=== PATIENT | female | born 1955 | race Caucasian/White ===

== ENCOUNTER → 2018-03-02 07:39 | Outpatient (CLI) | payer OTHER, SELFPAY ==
--- NOTE | 2018-03-02 07:57 | CI_ITS ---
Cerebrovascular Exam Indications: 785.9 Bruit. IMPRESSIONS 1. The bilateral vertebral arteries are patent with normal antegrade flow. 2. Study suggests less than 20% stenosis involving the right internal carotid artery and the left internal carotid artery. History: Risk factors: Hypertension. Hyperlipidemia. Carotid duplex study. Complete study and Doppler flow study including spectral analysis, color and chris scale imaging. Height: Height: 160cm. Height: 63in. Weight: Weight: 63.5kg. Weight: 139.7lb. Body mass index: BMI: 24.8kg/m^2. Body surface area: BSA: 1.69m^2. Location: Vascular laboratory. Patient status: Outpatient. Tables: Arterial flow: + +--------+--------+ Location V sys V ed + +--------+--------+ Right CCA - proximal 104cm/s 33.8cm/s + +--------+--------+ Right CCA - distal 126cm/s 41.6cm/s + +--------+--------+ Right ECA 193cm/s -------- + +--------+--------+ Right ICA - proximal 120cm/s 35.8cm/s + +--------+--------+ Right ICA - mid 128cm/s 36.7cm/s + +--------+--------+ Right ICA - distal 106cm/s 41cm/s + +--------+--------+ Right vertebral 69.8cm/s -------- + +--------+--------+ Left CCA - proximal 93.4cm/s 24.4cm/s + +--------+--------+ Left CCA - distal 126cm/s 41.9cm/s + +--------+--------+ Left ECA 157cm/s -------- + +--------+--------+ Left ICA - proximal 114cm/s 34.1cm/s + +--------+--------+ Left ICA - mid 135cm/s 38.4cm/s + +--------+--------+ Left ICA - distal 113cm/s 43.1cm/s + +--------+--------+ Left vertebral 62.9cm/s -------- + +--------+--------+ Velocity ratios: + + + + + + Right, V sys Right, V ed Left, V sys Left, V ed + + + + + + Max ICA/dist CCA 1.02 0.99 1.07 1.03 + + + + + + (Report amended ) Electronically signed by: Duane Paredes [id number]
--- NOTE | 2018-03-02 09:10 | MM_ITS ---
MM Dig screening mamm BI w/CAD CAD Screening ORDERING PHYSICIAN : Homero Sloan MD PATIENT AGE: 63 years GENDER: Female COMPARISON: Previous not available for comparison. Mammograms from [place] February INDICATION: Routine screening. No hormones. No new complaints. Family history. 2 sisters with breast cancer TECHNIQUE: Standard CC and MLO images were obtained. R2 CAD reviewed. FINDINGS: Lower density breast with some minimal asymmetric fibroglandular elements more evident on right than left. However this appears to be stable long-standing feature with no significant new findings. No dominant mass nor suspicious calcifications. Bilateral follow-up one year adequate. IMPRESSION: Stable bilateral mammogram with no significant new findings. Stable mild asymmetry. Follow up one year recommended BI-RADS Category: 1 Negative RECOMMENDED FOLLOW-UP: 1YR - 1 YEAR FOLLOW-UP (A letter has been sent to the patient regarding results of the study.)
--- NOTE | 2018-03-02 09:10 | XR_ITS ---
XR DEXA axial skeleton HISTORY: ITS.REASON: OSTEOPENIA' ORDERING PHYSICIAN: Homero Sloan MD PATIENT AGE: 63 years COMPARISON: FINDINGS: The BMD measured at the AP Spine L1-L4 is 0.920 g/cm squared with a T score of -2.2. This is considered Osteopenic according to the World Health Organization criteria. Fracture risk is Moderate. Treatment is advised. The mean density of the hips is a T score of -1.2 IMPRESSION: Osteoporosis with high fracture risk. Recommend follow-up exam in February 2019. Treatment is recommended.
== END ==
PROVIDERS: Family Provider Family Medicine; PCP Family Medicine; Visit Provider Family Medicine
DX: R09.89 Other specified symptoms and signs involving the circulatory and respiratory systems (principal); Z12.31 Encounter for screening mammogram for malignant neoplasm of breast; M85.89 Other specified disorders of bone density and structure, multiple sites; Z13.820 Encounter for screening for osteoporosis
CPT/HCPCS: 77067; 77080; 93880

== ENCOUNTER → 2018-08-14 11:23 | Outpatient (CLI) | payer OTHER, SELFPAY ==
--- NOTE | 2018-08-14 11:27 | XR_ITS ---
XR chest 2V HISTORY: Right-sided chest pain ITS.REASON: CONTUSION OF RT RIB ORDERING PHYSICIAN: Homero Sloan MD PATIENT AGE: 63 years COMPARISON: None FINDINGS: Borderline cardiomegaly without failure. No lobar consolidation or collapse. No acute bony anomalies. IMPRESSION: No acute finding
--- NOTE | 2018-08-14 11:27 | XR_ITS ---
XR ribs RT 2V HISTORY: Right-sided rib pain following injury ITS.REASON: CONTUSION OF RT RIB ORDERING PHYSICIAN: Homero Sloan MD PATIENT AGE: 63 years Comparison: None FINDINGS: Multiple views of the right ribs were obtained. No fracture or dislocation. No lytic or blastic change. IMPRESSION: Negative RIBS. If pain persists, consider follow-up exam in 7-[address] with 3-D reformats.
== END ==
PROVIDERS: PCP Family Medicine; Visit Provider Family Medicine
DX: S20.211A Contusion of right front wall of thorax, initial encounter (principal)
CPT/HCPCS: 71046; 71100

== ENCOUNTER → 2020-03-28 13:28 | Outpatient (CLI) | payer BC, SELFPAY ==
[2020-03-28 14:24] LABS: Coronavirus 19 IgG Antibody Negative (Negative)
[2020-03-28 14:25] LABS: Coronavirus 19 IgM Antibody Negative (Negative)
== END ==
PROVIDERS: Visit Provider Surgery
DX: Z01.818 Encounter for other preprocedural examination (principal)
CPT/HCPCS: 86328

== ENCOUNTER 2020-03-29 09:40 | Day surgery (SDC) | payer BC, SELFPAY ==
--- NOTE | 2020-03-28 10:46 | SUR.PREOP ---
03/28/2020 @ 1045--PHONE CALL MADE TO PATIENT. PATIENT UNDERSTANDS THAT LAB WORK AND COVID TESTING NEEDS TO BE COMPLETED TODAY BY 3 PM. PATIENT UNDERSTANDS IF LAB WORK AND COVID-19 TESTS ARE NOT COMPLETED BY 12PM ON THAT DATE, THE SURGERY SCHEDULED WILL BE CANCELLED AND RESCHEDULED FOR ANOTHER TIME.
[2020-03-28 11:41] VITALS: BMI 24.0
[2020-03-29] VITALS (13 sets, daily range): BP systolic 120–150; BP diastolic 58–86; PULSE 58–73; RESP 14–20; TEMP 36.4–43; O2SAT 96–100
--- NOTE | 2020-03-29 10:25 | P.PN_ITS ---
[facility] Anesthesia Checklist - Patient Identification Patient Identification: Arm Band, Verbal (Name & ) - Structural Data Admitted From: Home Planned Operative Procedure/s: EUA Consent for Planned Operative Procedure(s) Verified: Yes Verified Documents: Surgical Consent, History and Physical - NPO Status Verified Time NPO: 20:30 - Chart Verification Results Verified: None (Covid-19 negative) - Additional verifications Anesthesia Reactions: No Hx Blood Transfusions: No Blood Transfusion Reaction: No - Airway Assessment C-Spine Mobility Assessed: Yes TMJ Mobility Assessed: Yes Dentition: Good Dentition - Neurological Assessment Level of Consciousness: Awake, Alert, Appropriate, Follows Commands Hx Seizures: Yes (last was 20 years ago) Numbness or tingling in extremities: No - Anesthesia Plan Anesthesia Risk discussed: Yes Anesthesia Plan: Verified ASA Class: II Anesthesia Type: MAC [facility] History I have reviewed the patient's past medical history: Yes Medical History: Reports:: Hyperlipidemia, Hypertension, Seizures Denies:: Cancer, Diabetes Mellitus Type 1, Diabetes Mellitus Type 2, Internal Pacemaker, MRSA *Have you ever received a pneumonia vaccine?: Yes *Have you received a flu vaccine this season?: No Other Medical History: Reports: Hypothyroidism. Denies: Blood Transfusion Reaction Anesthesia experience/problems:: Anesthesia awareness during hysterectomy Laterality Cases: Bilateral: Arthroscopy Shoulder Other Surgeries: Yes: Colonoscopy. No: Pacemaker Amputation: No Fractures: No Comment: SXHX: Divina - *Social History Educational Level: Attended High School Smoking Status: Never smoker Alcohol Intake: never Substance Use Type: denies use *Occupational Status:: other Housing: house Household Members: spouse *Travel in the last 8 weeks: None Family Hx:: No significant family history
--- NOTE | 2020-03-29 11:35 | HMH.OPNOTE ---
Date of procedure: 03/29/20 Pre-op Diagnosis:: Anorectal pain Post-op Diagnosis:: Same Procedure performed:: AnoRectal exam under anesthesia Surgeon:: Roel Todd MD SENIOR CORPORATE STRATEGY MANAGER:: Juvencio Carr Anesthesia: LMA Estimated blood loss (mL): 2 Clinical Note:: She was referred by Jael Burns and seen in the office several weeks ago. At that time she had several weeks of severe anal pain described as often sharp like. Denies rectal bleeding. She was sent for evaluation of hemorrhoids. The time I saw her examination was very limited due to her exquisite pain but her symptoms seem to be more consistent with possible anal fissure. I changed her medication treatment to be better suited for fissure with nitroglycerin ointment and Xylocaine ointment. Patient presented back to the office a couple of days ago still has significant pain and states that after bowel movement it feels extremely sharp and tearing. Examination was inconclusive as it was very limited due to her severe pain. Options were discussed including possible colorectal surgery referral for presumed fissure. Patient was reluctant as this would require travel. Plan was made to proceed with exam under anesthesia to better evaluate the underlying etiology of her symptoms. Operative findings:: She had an anterior midline anal fissure Operative note:: Patient was taken to the operating room. She was positioned in a supine position. General anesthesia was induced via LMA. Perineum was prepped and draped in the standard surgical fashion. Digital examination was performed which was relatively unremarkable. [place] anoscope was inserted. 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 She did not appear to have definite hypertrophic anal stenosis. Local anesthetic consisting of half percent bupivacaine with epinephrine was injected at the region of the fissure and anal Derm. There is minor using and Gelfoam rolled and topical anesthetic was inserted into the anorectal vault. Absorbent pad was applied. Patient may receive relief from minor dilatation from the exam and injection of local anesthetic. I will have her continue with the topical lidocaine. If her symptoms persist she may be a candidate for diltiazem ointment for continued attempt at nonoperative management. However, I did inform her that she may require colorectal surgical referral for definitive management due to the unusual nature and location of this fissure. Condition: stable Disposition: PACU Complications:: None
--- NOTE | 2020-03-29 11:41 | P.PN_ITS ---
[facility] Anesthesia Record Part I Intake, IV Amount: 850 Estimated blood loss (mL): 0 Urine output (mL): 0 Blood Products used (#): none Blood Pressure: 128/58 SaO2: 96 Pulse Rate: 73 Respiratory Rate: 20 Temperature: 97.6 F Patient is:: Drowsy, Stable Stable to PACU at:: 11:39
--- NOTE | 2020-03-29 12:45 | HMH.ANESII ---
[facility] Anesthesia Record Part II Discharge Time: 12:09 Destination: Surgical Day Care (OP Surgery) PACU nurse assessment reviewed?: Yes Patient Condition:: Good Anesthesia Complications:: None Swallowing reflex intact?: Yes Cyanosis?: No Blood Pressure: 134/66 Pulse Rate: 61 Temperature: 98.7 F Mental Status: Alert & Oriented Pain level:: 2 Nausea and/or vomitting:: None Intake, IV Amount: 20
== END 2020-03-29 13:05 | disposition home or self-care (01) ==
PROVIDERS: PCP Family Medicine; Visit Provider Surgery
PROC: (CPT 45378; principal; 2020-03-29 11:30)
DX: K62.89 Other specified diseases of anus and rectum (principal); K60.2 Anal fissure, unspecified; Z88.8 Allergy status to other drugs, medicaments and biological substances; Z79.899 Other long term (current) drug therapy; E03.9 Hypothyroidism, unspecified; I10 Essential (primary) hypertension
CPT/HCPCS: 45378; J2405

== ENCOUNTER → 2020-09-12 08:39 | Outpatient (CLI) | payer BC, MEDICARE, SELFPAY ==
--- NOTE | 2020-09-12 08:53 | MR_ITS ---
PROCEDURE: MR HEAD/BRAIN WO CON CLINICAL INDICATION: seizure, headaches COMPARISON: No exams were available for comparison TECHNIQUE: Routine multiplanar multi echo sequences are performed without gadolinium enhancement. FINDINGS: No midline shift, mass effect, intracranial hemorrhage, or hydrocephalus is evident. The cerebellopontine angles, cerebellum, and brainstem have an unremarkable appearance. No evidence of acute infarction. There are few T2 white matter hyperintensities which are nonspecific. These may be due to ischemic gliotic change from microvascular disease. The hippocampal gyri are unremarkable in the temporal horns are symmetric. The pituitary, optic chiasm, corpus callosum, and craniocervical junction have an unremarkable appearance. The upper cervical cord has an unremarkable appearance. No mastoid effusion or sinus air-fluid level. IMPRESSION: 1. No acute intracranial findings. 2. There are few scattered T2 white matter hyperintensities nonspecific and may be due to ischemic gliotic change from microvascular disease. Dictated by: Duane Paredes MD 09/13/2020 11:45 Duane Paredes MD in [place] 09/13/2020 11:45
[2020-09-12 09:03] LABS: Blood Urea Nitrogen 12 mg/dl (7-17); Estimated Glomerular Filt Rate 72 ml/min (>60); GFR (African American) 87 ML/MIN (>60)
[2020-09-12 10:17] LABS: Ferritin 34.7 ng/ml (11.1-264)
[2020-09-12 10:57] LABS: Folate 5.73 ng/mL; Vitamin B12 882 pg/mL (239-931)
[2020-09-12 12:37] LABS: Erythrocyte Sedimentation Rate 18 mm/hr (0-30)
[2020-09-24 16:48] LABS: Antinuclear Antibodies (ANA) Positive
[2020-09-24 16:50] LABS: Anti-DNA (DS) Ab Charge YES; Anti-DNA (DS) Ab Qn 14; RNP Antibodies <.2; RNP Antibodies Charge YES; Smith Antibodies Charge YES
[2020-09-24 16:51] LABS: Anti-Centromere B Abs Charge YES; Anti-Centromere B Antibodies <.2; Anti-Jo-1 <.2; Anti-Jo-1 Charge YES; Antichromatin Abs Charge YES; Antichromatin Antibodies <.2; Antiscleroderma-70 Abs Charge YES; Antiscleroderma-70 Antibodies <.2; Sjogren's Anti-SS-A <.2; Sjogren's Anti-SS-A Ab Charge YES; Sjogren's Anti-SS-B <.2; Sjogren's Anti-SS-B Ab Charge YES
== END ==
PROVIDERS: Nurse Practitioner Family; PCP Family Medicine; Visit Provider Specialist
DX: G43.719 Chronic migraine without aura, intractable, without status migrainosus (principal); R20.0 Anesthesia of skin; E53.8 Deficiency of other specified B group vitamins; E83.10 Disorder of iron metabolism, unspecified; Z87.19 Personal history of other diseases of the digestive system; Z87.898 Personal history of other specified conditions
CPT/HCPCS: 36415; 70551; 82565; 82607; 82728; 82746; 84520; 85651; 86038; 86225; 86235

== ENCOUNTER 2020-10-13 11:01 | Emergency (ER) | payer BC, SELFPAY ==
[2020-10-13 11:11] VITALS: BP 118/71; PULSE 76; RESP 17; TEMP 36.6; O2SAT 98; BMI 24.0
--- NOTE | 2020-10-13 11:19 | HMH.EDUTC ---
[facility] [place] Clinical Impression: Viral syndrome, Exposure to COVID-19 virus Disposition: Home, Self-Care Condition on Discharge: Good Instructions: Preventing the Spread of Coronavirus Discharge Instructions Additional Instructions: Drink plenty of fluids. Take tylenol for pain or fever. Return if you begin to have difficulty breathing. Follow up with your regular doctor. GO TO THE ER FOR ANY WORSENING SYMPTOMS Prescriptions: Ondansetron [Zofran 4mg ODT] 4 mg PO Q8HP PRN #20 tab.rapdis PRN Reason: Nausea Transmission Status: Received by [id number] Azithromycin [Z-Raymundo 250mg Tab*] 250 mg PO UD DOSE PK #6 tab Transmission Status: Received by [id number] Referrals: Homero Sloan MD [Primary Care Provider] - Time of Disposition: 11:21 Medical Decision Making - Medical Records Medical records reviewed: No: I reviewed the patient's medical records. - Rah Inquiry Pt receiving controlled substance: No Vital Signs: 10/13/20 11:11 10/13/20 11:39 Temperature 97.9 F 97.9 F Temperature Source Oral Oral Pulse Rate 76 Pulse Rate [Radial] 76 Respiratory Rate 17 17 Blood Pressure 118/71 Blood Pressure [Right Arm] 118/71 Blood Pressure Mean [Right Arm] 86 Blood Pressure Source Automatic Cuff Blood Pressure Source [Right Arm] Automatic Cuff Blood Pressure Position Sitting Blood Pressure Position [Right Arm] Sitting 02 Sat by Pulse Oximetry 98 Oxygen Delivery Method Room Air Room Air Orders (Tests/Meds): ORDERS Category Date Time Status Covid-19 Nasal PCR Sendout [facility] 10/13/20 11:07 [place] [facility] [place] - General Stated complaint: covid test Time Seen by Provider: 10/13/20 11:19 Mode of Arrival: Ambulatory Source of Information: Patient Limitations: No Limitations Description of Symptoms (Recalled from Triage Doc. by RN): COVID TEST, COUGH AND FEVER FOR A COUPLE OF DAYS. HEENT Symptoms (Recalled from RN notes): Yes Resp Symptoms (Recalled from RN notes): No Skin Symptoms (Recalled from RN notes): No MS Symptoms (Recalled from RN notes): No Functional Status (Recalled from RN notes): WNL - History of Present Illness Provider Complaint: She c/o 2 days of fever up to 100.9. She has been coughing and having body aches also. - Related Data Home Medications Medication Instructions Recorded Confirmed aspirin 81 mg tablet,delayed 81 mg PO DAILY 03/06/20 09/12/20 release cyanocobalamin (vitamin B-12) 2,500 mcg PO DAILY 03/06/20 09/12/20 2,500 mcg tablet ergocalciferol (vitamin D2) 1,250 1,250 mcg PO QMONTH 03/06/20 09/12/20 mcg (50,000 unit) capsule polyethylene glycol 3350 17 17 g PO DAILY 03/06/20 09/12/20 gram/dose oral powder pregabalin 150 mg capsule 150 mg PO DAILY 03/06/20 09/12/20 rosuvastatin 10 mg sprinkle capsule 10 mg PO DAILY 03/06/20 09/12/20 sertraline 100 mg tablet 100 mg PO DAILY 03/06/20 09/12/20 topiramate 100 mg capsule,extended 100 mg PO DAILY 03/06/20 09/12/20 release 24 hr trazodone 100 mg tablet 100 mg PO DAILY 03/06/20 09/12/20 levothyroxine 150 mcg tablet 125 mcg PO DAILY tab 09/12/20 09/12/20 Previous Rx's Medication Instructions Recorded ubrogepant 100 mg tablet 100 mg PO .COMPLEX 30 Days #10 tab 09/04/20 galcanezumab-gnlm 120 mg/mL 120 mg SQ QMONTH #1 ml 10/04/20 subcutaneous pen injector Azithromycin [Z-Raymundo 250mg Tab*] 250 mg PO UD DOSE PK #6 tab 10/13/20 Ondansetron [Zofran 4mg ODT] 4 mg PO Q8HP PRN #20 tab.rapdis 10/13/20 Allergies Allergy/AdvReac Type Severity Reaction Status Date / Time Anticonvulsant Allergy Unknown Uncoded 04/10/20 10:09 Codeine Allergy Unknown Uncoded 04/10/20 10:09 Tuberculin Allergy Unknown Uncoded 04/10/20 10:09 - Worker's Comp Is this a Worker's Comp case?: No [facility] History - Hepatitis A Screen Drug use history?: No High risk sexual behaviors?: No History of sexually transmitted infection?: No Currently employed?: No Childcare w
[2020-10-13 11:39] VITALS: BP 118/71; PULSE 76; RESP 17; TEMP 36.6; O2SAT 98
[2020-10-14 17:51] LABS: Covid-19 Nasal PCR Sendout Lex Not Detected
== END 2020-10-13 11:40 | disposition home or self-care (01) ==
PROVIDERS: Emergency Provider Nurse Practitioner Family; PCP Family Medicine
DX: Z20.828 Contact with and (suspected) exposure to other viral communicable diseases (principal); B34.9 Viral infection, unspecified; F41.8 Other specified anxiety disorders; E78.5 Hyperlipidemia, unspecified; I10 Essential (primary) hypertension; E03.9 Hypothyroidism, unspecified; G43.709 Chronic migraine without aura, not intractable, without status migrainosus; Z79.899 Other long term (current) drug therapy
CPT/HCPCS: 99201; U0004

== ENCOUNTER → 2021-05-22 10:05 | Outpatient (CLI) | payer MEDICARE, SELFPAY ==
--- NOTE | 2021-05-22 10:08 | MM_ITS ---
PROCEDURE: MM DIG SCREENING MAMM BI W/CAD Digital Breast Tomosynthesis Included CLINICAL INDICATION: SCREENING COMPARISON: MG MM MAMMO DIGITAL SCREENING W CAD BILAT from 09/16/2011 MG MM MAMMO DIGITAL SCREENING W CAD BILAT from 10/21/2012 MG MM MAMMO DIGITAL SCREENING W CAD BILAT from 03/09/2014 MG [facility] MM Dig screening mamm BI w/CAD from 03/02/2018 TECHNIQUE: Standard CC and MLO images and 3D Tomosynthesis was obtained. R2 CAD reviewed. FINDINGS: Mostly fatty replaced fibroglandular tissue. No malignant appearing mass or malignant-appearing microcalcification. There are bilateral benign-appearing calcifications. IMPRESSION: Benign findings. BI-RAD Category: 2 Benign Finding FOLLOW-UP: 1 YR 1 Year Follow-up (A letter has been sent to the patient regarding results of the study.) Dictated by: Duane Paredes MD 05/23/2021 09:25 Duane Paredes MD in [place] 05/23/2021 09:25
== END ==
PROVIDERS: PCP Family Medicine; Visit Provider Family Medicine
DX: Z12.31 Encounter for screening mammogram for malignant neoplasm of breast (principal)
CPT/HCPCS: 77063; 77067

== ENCOUNTER → 2021-07-13 15:07 | Outpatient (CLI) | payer MEDICARE, SELFPAY ==
[2021-07-13 17:30] LABS: Adenovirus,PCR Not Detected (NotDetected); Bordetella Pertussis Not Detected (NotDetected); Chlamydophila Pneumoniae, PCR Not Detected (NotDetected); Coronavirus 19, PCR Not Detected (NotDetected); Coronavirus 229E Not Detected (NotDetected); Coronavirus NL63 Not Detected (NotDetected); Coronavirus OC43 Not Detected (NotDetected); Coronovirus HKU1,PCR Not Detected (NotDetected); Human Metapneumovirus Not Detected (NotDetected); Influenza A, PCR Not Detected (NotDetected); Influenza AH1, 2009 Not Detected (NotDetected); Influenza AH1, PCR Not Detected (NotDetected); Influenza AH3,PCR Not Detected (NotDetected); Influenza B, PCR Not Detected (NotDetected); Mycoplasma Pneumoniae, PCR Not Detected (NotDetected); Parainfluenza 1, PCR Not Detected (NotDetected); Parainfluenza 2, PCR Not Detected (NotDetected); Parainfluenza 3, PCR Not Detected (NotDetected); Parainfluenza 4, PCR Not Detected (NotDetected); Respiratory Syncytial Virus Not Detected (NotDetected)
[2021-07-13 18:01] LABS: Basophils % 0.8 % (0.1-2.0); Eosinophils # 0.1 K/mm3 (0.0-0.4); Eosinophils % 1.3 % (0.1-12.0); Hematocrit 39.4 % (37.0-47.0); Hemoglobin 12.7 g/dL (12.2-16.2); Lymphocytes # 1.4 K/mm3 (0.7-4.5); Lymphocytes % 31.5 % (10-50); Mean Corpuscular HGB Conc 32.2 g/dL (31.8-35.4); Mean Corpuscular Hemoglobin 29.4 pg (27.0-31.2); Mean Corpuscular Volume 91.2 fl (81-99); Mean Platelet Volume 8.4 fl (7.4-10.4); Monocytes # 0.4 K/mm3 (0.1-1.0); Monocytes % 8.7 % (1.7-9.3); Neutrophils # 2.5 K/mm3 (1.8-7.8); Neutrophils % 57.7 % (37.0-80.0); Platelet Count 243 K/mm3 (142-424); Red Blood Count 4.32 M/mm3 (4.20-5.40); Red Cell Distribution Width 14.4 % (11.5-17.5); White Blood Count 4.3 K/mm3 (4.8-10.8)
[2021-07-13 18:04] LABS: Strep Scrn Group A (Rapid) Negative (Negative)
[2021-07-14 00:04] LABS: Rhinovirus/Enterovirus Detected (NotDetected)
== END ==
PROVIDERS: PCP Family Medicine; Visit Provider Family Medicine
DX: Z20.822 Contact with and (suspected) exposure to COVID-19 (principal); B34.1 Enterovirus infection, unspecified
CPT/HCPCS: 36415; 85025; 87430; 87581; 87633; 87798

== ENCOUNTER → 2022-03-07 12:25 | Outpatient (CLI) | payer MEDICARE, SELFPAY ==
--- NOTE | 2022-03-07 12:31 | XR_ITS ---
FINAL REPORT CLINICAL HISTORY: CONTUSION OF NECK FINDINGS: CERVICAL SPINE Five views demonstrate no acute fracture. There is moderate disc space narrowing at C5-6 and C6-7. There is mild anterior osteophyte formation at C4-5, C5-6, and C6-7. There is no malalignment. IMPRESSION: Degenerative disc disease as above. Reviewed, Interpreted and Dictated by Ba Bhakta MD Transcribed by Yolis Prieto Authenticated by Ba Bhakta MD on 03/07/2022 02:32:00 PM [facility]
--- NOTE | 2022-03-07 12:31 | XR_ITS ---
FINAL REPORT CLINICAL HISTORY: LT SHOULDER CONTUSION FINDINGS: LEFT SHOULDER Three views were obtained. There is a displaced fracture of the distal clavicle. Fracture line remains visible. There is callus formation at the fracture margin. IMPRESSION: Fracture as above. Reviewed, Interpreted and Dictated by Ba Bhakta MD Transcribed by Yolis Prieto Authenticated by Ba Bhakta MD on 03/07/2022 02:31:58 PM [facility]
== END ==
PROVIDERS: PCP Family Medicine; Visit Provider Family Medicine
DX: S10.93XA Contusion of unspecified part of neck, initial encounter (principal); S40.012A Contusion of left shoulder, initial encounter
CPT/HCPCS: 72050; 73030

== ENCOUNTER → 2022-07-05 10:31 | Outpatient (CLI) | payer MEDICARE, SELFPAY ==
--- NOTE | 2022-07-05 10:32 | MM_ITS ---
PROCEDURE INFORMATION: Exam: MG Bilateral Screening 3D Mammography Exam date and time: 07/05/2022 10:47 AM Age: 67 years old Clinical indication: Screening. No family history of breast cancer. TECHNIQUE: Imaging protocol: Bilateral Screening tomosynthesis and 2D mammography including computer-aided detection (CAD) when performed. COMPARISON: 1. MG MM DIG SCREENING MAMM BI W/CAD 05/22/2021 10:11 AM 2. MG [facility] MM Dig screening mamm BI w/CAD 03/02/2018 9:34 AM 3. MG MM MAMMO DIGITAL SCREENING W CAD BILAT 03/09/2014 12:57 PM 4. OT DIGMAMMS MAMMOGRAM SCREEN-SSRS DEVELOPER N/C 03/30/2007 3:50 PM FINDINGS: MAMMOGRAPHY: Breast composition: The breasts are almost entirely fatty. Mass: None. Architectural distortion: None. Calcifications: No suspicious calcifications. Asymmetric density: Stable asymmetrically denser tissue/focal asymmetry in the right upper outer quadrant since 03/30/2007. Skin thickening: None. Axillary adenopathy: None. IMPRESSION: Stable focal asymmetry in the right upper outer breast, clinical correlation to this quadrant is recommended, and if negative clinically, annual screening is recommended. ASSESSMENT: BI-RADS Category 2: Benign
== END ==
PROVIDERS: PCP Family Medicine; Visit Provider Family Medicine
DX: Z12.31 Encounter for screening mammogram for malignant neoplasm of breast (principal)
CPT/HCPCS: 77063; 77067

== ENCOUNTER → 2022-09-27 13:39 | Outpatient (CLI) | payer MEDICARE, SELFPAY ==
[2022-09-27 18:11] LABS: Adenovirus,PCR Not Detected (NotDetected); Bordetella Pertussis Not Detected (NotDetected); Chlamydophila Pneumoniae, PCR Not Detected (NotDetected); Coronavirus 19, PCR Not Detected (NotDetected); Coronavirus 229E Not Detected (NotDetected); Coronavirus NL63 Not Detected (NotDetected); Coronavirus OC43 Not Detected (NotDetected); Coronovirus HKU1,PCR Not Detected (NotDetected); Human Metapneumovirus Not Detected (NotDetected); Influenza A, PCR Not Detected (NotDetected); Influenza AH1, 2009 Not Detected (NotDetected); Influenza AH1, PCR Not Detected (NotDetected); Influenza AH3,PCR Not Detected (NotDetected); Influenza B, PCR Not Detected (NotDetected); Mycoplasma Pneumoniae, PCR Not Detected (NotDetected); Parainfluenza 1, PCR Not Detected (NotDetected); Parainfluenza 2, PCR Not Detected (NotDetected); Parainfluenza 3, PCR Not Detected (NotDetected); Parainfluenza 4, PCR Not Detected (NotDetected); Respiratory Syncytial Virus Not Detected (NotDetected)
[2022-09-28 13:37] LABS: Rhinovirus/Enterovirus Detected (NotDetected)
== END ==
PROVIDERS: PCP Physician Assistant; Visit Provider Physician Assistant
DX: J02.9 Acute pharyngitis, unspecified (principal); B34.1 Enterovirus infection, unspecified; H92.09 Otalgia, unspecified ear; R09.81 Nasal congestion; R68.83 Chills (without fever); M79.18 Myalgia, other site; R43.9 Unspecified disturbances of smell and taste
CPT/HCPCS: 87581; 87632; 87798; C9803; U0003; U0005

== ENCOUNTER → 2022-10-31 11:04 | Outpatient (CLI) | payer MEDICARE, SELFPAY ==
[2022-10-31 12:23] LABS: Basophils % 0.7 % (0.1-2.0); Eosinophils % 0.6 % (0.1-12.0); Hematocrit 37.1 % (37.0-47.0); Lymphocytes # 1.5 K/mm3 (0.7-4.5); Lymphocytes % 26.3 % (10-50); Mean Corpuscular HGB Conc 32.4 g/dL (31.8-35.4); Mean Corpuscular Hemoglobin 29.3 pg (27.0-31.2); Mean Corpuscular Volume 90.4 fl (81-99); Mean Platelet Volume 8.2 fl (7.4-10.4); Monocytes # 0.4 K/mm3 (0.1-1.0); Monocytes % 6.8 % (1.7-9.3); Neutrophils # 3.8 K/mm3 (1.8-7.8); Neutrophils % 65.6 % (37.0-80.0); Platelet Count 275 K/mm3 (142-424); Red Blood Count 4.11 M/mm3 (4.20-5.40); White Blood Count 5.7 K/mm3 (4.8-10.8)
[2022-10-31 14:14] LABS: Ferritin 22.2 ng/ml (11.1-264)
== END ==
PROVIDERS: PCP Family Medicine; Visit Provider Specialist
DX: G43.719 Chronic migraine without aura, intractable, without status migrainosus (principal); E83.10 Disorder of iron metabolism, unspecified; E03.9 Hypothyroidism, unspecified; G25.81 Restless legs syndrome
CPT/HCPCS: 36415; 82728; 85025

== ENCOUNTER → 2023-01-02 14:16 | Outpatient (CLI) | payer MEDICARE, SELFPAY ==
--- NOTE | 2023-01-02 14:23 | CT_ITS ---
FINAL REPORT TECHNIQUE: Axial images of the head were obtained without contrast. Coronal reformatted images were also obtained.This study was performed with techniques to keep radiation doses as low as reasonably achievable (ALARA). Individualized dose reduction techniques using automated exposure control or adjustment of mA and/or kV according to the patient's size were employed. CLINICAL HISTORY: NEW ONSET WORSE HEADACHE COMPARISON: None FINDINGS: There is no evidence of intracranial hemorrhage or mass. The ventricular size is within normal limits. There is no evidence of shift of the midline structures. No abnormal extra axial fluid collection is identified. No skull abnormality is seen on the bone window images. IMPRESSION: No acute intracranial finding. Reviewed, Interpreted and Dictated by Roel Lind III, MD Transcribed by Cookie Smyth Authenticated and [facility]
[2023-01-02 14:54] LABS: MANUAL DIFFERENTIAL MANUAL DIFFERENTIAL (MANUAL DIFF)
[2023-01-02 15:25] LABS: Basophils # 0.1 K/mm3 (0-0.2); Basophils % 0.9 % (0.1-2.0); Eosinophils % 0.5 % (0.1-12.0); Hematocrit 39.7 % (37.0-47.0); Hemoglobin 12.8 g/dL (12.2-16.2); Lymphocytes # 1.7 K/mm3 (0.7-4.5); Lymphocytes % 20.7 % (10-50); Mean Corpuscular HGB Conc 32.2 g/dL (31.8-35.4); Mean Corpuscular Hemoglobin 27.9 pg (27.0-31.2); Mean Corpuscular Volume 86.7 fl (81-99); Monocytes # 0.4 K/mm3 (0.1-1.0); Monocytes % 4.8 % (1.7-9.3); Neutrophils # 5.9 K/mm3 (1.8-7.8); Neutrophils % 73.1 % (37.0-80.0); Platelet Count 261 K/mm3 (142-424); Red Blood Count 4.58 M/mm3 (4.20-5.40); Red Cell Distribution Width 14.5 % (11.5-17.5); White Blood Count 8.1 K/mm3 (4.8-10.8)
[2023-01-02 15:52] LABS: Eosinophils % 2 % (0-3); Lymphocytes % 31 % (10-50); Monocytes % 1 % (2-9); Neutrophils % 63 % (42-76); Total Cells Counted 100
[2023-01-02 15:53] LABS: Anisocytosis 1+; Ovalocytes 1+; Platelet Estimate Normal
== END ==
PROVIDERS: PCP Family Medicine; Visit Provider Specialist
DX: G43.719 Chronic migraine without aura, intractable, without status migrainosus (principal)
CPT/HCPCS: 36415; 70450; 85007; 85014; 85018; 85048; 85049

== ENCOUNTER → 2023-04-04 09:28 | Outpatient (CLI) | payer MEDICARE, SELFPAY ==
--- NOTE | 2023-04-04 09:45 | MR_ITS ---
FINAL REPORT CLINICAL HISTORY: Severe headache. DIZZINESS COMPARISON: 09/12/2020 FINDINGS: Multiplanar MR imaging of the brain was performed without and with contrast. Motion artifact is seen on some images. There is mild age-appropriate atrophy. Scattered foci of increased T2 signal are seen in the cerebral white matter that have a nonspecific appearance but likely represent mild chronic ischemic/gliotic changes. There is no evidence of intracranial hemorrhage or mass. No abnormal ventricular dilatation is identified. There is no evidence of shift of the midline structures. No abnormal extra-axial fluid collection is seen. No area of abnormal restricted diffusion is identified. The posterior fossa and brainstem have an unremarkable appearance. No abnormal contrast enhancement is seen. Normal major vessel vascular flow voids are seen. IMPRESSION: Mild atrophy and chronic ischemic/gliotic changes. No acute intracranial abnormality. Reviewed, Interpreted and Dictated by Roel Lind III, MD Transcribed by Amelia Ann Authenticated and . [facility]
[2023-04-04 09:54] LABS: White Blood Count 6.4 K/mm3 (4.8-10.8)
[2023-04-04 10:00] LABS: Chloride 102 mmol/L (98-107); Potassium 3.7 mmoL/L (3.5-5.1); Sodium 138 mmol/L (136-145)
[2023-04-04 10:03] LABS: Alanine Aminotransferase 16 U/L (12-78); Albumin Level 4.6 g/dl (3.5-5.0); Albumin/Globulin Ratio 1.5 (1.1-1.8); Alkaline Phosphatase 60 U/L (38-126); Anion Gap 12.7 mEq/L (5-15); Aspartate Amino Transferase 26 U/L (14-36); Bilirubin,Total 0.4 mg/dl (0.2-1.3); Blood Urea Nitrogen 11 mg/dl (7-17); Calcium 9.7 mg/dl (8.4-10.2); Carbon Dioxide 27 mmol/L (22.0-30.0); Estimated Glomerular Filt Rate 71 ml/min (>60); GFR (African American) 86 ML/MIN (>60); Globulin 3.1 g/dL (1.3-3.2); Glucose 109 mg/dl (74-100); Total Protein,Serum 7.7 g/dl (6.3-8.2)
[2023-04-04 10:38] LABS: Ferritin 20.9 ng/ml (11.1-264)
[2023-04-04 11:50] LABS: Vitamin B12 783 pg/mL (239-931)
[2023-04-04 12:23] LABS: Erythrocyte Sedimentation Rate 18 mm/hr (0-30)
[2023-04-08 16:13] LABS: Anti-Centromere B Antibodies <0.2 AI (0.0-0.9); Anti-DNA (DS) Ab Qn 14 IU/mL (0-9); Anti-Jo-1 <0.2 AI (0.0-0.9); Antichromatin Antibodies <0.2 AI (0.0-0.9); Antiscleroderma-70 Antibodies <0.2 AI (0.0-0.9); RNP Antibodies <0.2 AI (0.0-0.9); Sjogren's Anti-SS-A <0.2 AI (0.0-0.9); Sjogren's Anti-SS-B <0.2 AI (0.0-0.9)
[2023-05-24 00:11] LABS: Anti-Centromere B Abs Charge YES; Anti-DNA (DS) Ab Charge YES; Anti-Jo-1 Charge YES; Antichromatin Abs Charge YES; Antinuclear Antibodies (ANA) Positive; Antiscleroderma-70 Abs Charge YES; RNP Antibodies Charge YES; Sjogren's Anti-SS-A Ab Charge YES; Sjogren's Anti-SS-B Ab Charge YES; Smith Antibodies Charge YES
== END ==
PROVIDERS: PCP Family Medicine; Visit Provider Specialist
DX: M25.50 Pain in unspecified joint (principal); Z86.39 Personal history of other endocrine, nutritional and metabolic disease; E03.9 Hypothyroidism, unspecified; G43.719 Chronic migraine without aura, intractable, without status migrainosus; E83.10 Disorder of iron metabolism, unspecified
CPT/HCPCS: 36415; 70553; 80053; 82607; 82728; 82746; 85048; 85651; 86038; 86225; 86235

== ENCOUNTER → 2023-05-01 23:16 | Outpatient (CLI) | payer MEDICARE, SELFPAY ==
[2023-05-01 18:50] LABS: Alanine Aminotransferase 15 U/L (12-78); Albumin Level 4.4 g/dl (3.5-5.0); Albumin/Globulin Ratio 1.5 (1.1-1.8); Alkaline Phosphatase 84 U/L (38-126); Anion Gap 16.7 mEq/L (5-15); Aspartate Amino Transferase 22 U/L (14-36); Basophils % 0.3 % (0.1-2.0); Bilirubin,Total 0.6 mg/dl (0.2-1.3); Blood Urea Nitrogen 12 mg/dl (7-17); Calcium 9.5 mg/dl (8.4-10.2); Carbon Dioxide 25 mmol/L (22.0-30.0); Chloride 97 mmol/L (98-107); Eosinophils % 0.4 % (0.1-12.0); Estimated Glomerular Filt Rate 99 ml/min (>60); GFR (African American) 120 ML/MIN (>60); Globulin 2.9 g/dL (1.3-3.2); Glucose 80 mg/dl (74-100); Hematocrit 36.6 % (37.0-47.0); Hemoglobin 12.1 g/dL (12.2-16.2); Lymphocytes # 1.2 K/mm3 (0.7-4.5); Lymphocytes % 13.5 % (10-50); Mean Corpuscular HGB Conc 33.1 g/dL (31.8-35.4); Mean Corpuscular Hemoglobin 29.4 pg (27.0-31.2); Mean Corpuscular Volume 88.9 fl (81-99); Monocytes # 0.5 K/mm3 (0.1-1.0); Monocytes % 5.7 % (1.7-9.3); Neutrophils # 7.4 K/mm3 (1.8-7.8); Neutrophils % 80.1 % (37.0-80.0); Platelet Count 277 K/mm3 (142-424); Potassium 4.7 mmoL/L (3.5-5.1); Red Blood Count 4.12 M/mm3 (4.20-5.40); Red Cell Distribution Width 14.4 % (11.5-17.5); Sodium 134 mmol/L (136-145); Total Protein,Serum 7.3 g/dl (6.3-8.2); White Blood Count 9.2 K/mm3 (4.8-10.8)
[2023-05-01 19:07] LABS: Free T4 (Free Thyroxine) 1.52 ng/dl (0.78-2.19)
[2023-05-01 19:21] LABS: Hemoglobin A1C 5.2 % (4.0-6.0)
== END ==
PROVIDERS: PCP Nurse Practitioner; Visit Provider Nurse Practitioner
DX: E03.9 Hypothyroidism, unspecified (principal); G43.719 Chronic migraine without aura, intractable, without status migrainosus; R26.81 Unsteadiness on feet; R53.1 Weakness; Z86.39 Personal history of other endocrine, nutritional and metabolic disease; Z79.899 Other long term (current) drug therapy
CPT/HCPCS: 80053; 83036; 84439; 84443; 85025

== ENCOUNTER → 2023-05-02 23:13 | Outpatient (CLI) | payer MEDICARE, SELFPAY | PROVIDERS: PCP Nurse Practitioner; Visit Provider Nurse Practitioner | DX: R53.1 Weakness (principal) | CPT/HCPCS: 87086 ==

== ENCOUNTER → 2023-05-16 09:53 | Outpatient (CLI) | payer MEDICARE, SELFPAY | PROVIDERS: PCP Family Medicine; Visit Provider Family Medicine | DX: R00.2 Palpitations (principal); R07.89 Other chest pain; Z98.890 Other specified postprocedural states | CPT/HCPCS: 93306 ==

== ENCOUNTER → 2023-05-21 09:52 | Outpatient (CLI) | payer MEDICARE, SELFPAY ==
--- NOTE | 2023-05-21 09:52 | CT_ITS ---
FINAL REPORT TECHNIQUE: Multiple axial CT angiography images were performed from the foramen magnum to the vertex before and during IV contrast administration. This study was performed with techniques to keep radiation doses as low as reasonably achievable (ALARA). Individualized dose reduction techniques using automated exposure control or adjustment of mA and/or kV according to the patient's size were employed. CLINICAL HISTORY: . HEADACHES, DIZZINESS FINDINGS: No acute intracranial hemorrhage or large acute cortical infarct. The ventricles are normal. No mass is identified. No midline shift. CTA HEAD: The major intracranial arterial system is patent without hemodynamically significant stenosis or major vessel occlusion.No aneurysm is identified. IMPRESSION: No acute intracranial hemorrhage or large acute cortical infarct. No evidence of vascular injury, aneurysm, hemodynamically significant stenosis or major vessel occlusion of the intracranial arterial system. Reviewed, Interpreted and Dictated by Roel Lind III, MD Transcribed by Yolis Prieto Authenticated and [facility]
== END ==
PROVIDERS: PCP Family Medicine; Visit Provider Specialist
DX: M32.9 Systemic lupus erythematosus, unspecified (principal); R51.9 Headache, unspecified; R42 Dizziness and giddiness
CPT/HCPCS: 70496; Q9967

== ENCOUNTER 2023-06-08 16:54 | Emergency (ER) | payer MEDICARE, SELFPAY ==
[2023-06-08 16:56] VITALS: BP 176/97; PULSE 88; RESP 22; TEMP 36.6; O2SAT 100; BMI 23.5
[2023-06-08 17:00] VITALS: BP 161/123; PULSE 88; RESP 20; O2SAT 100
--- NOTE | 2023-06-08 17:18 | XR_ITS ---
PROCEDURE INFORMATION: Exam: XR Chest Exam date and time: 06/08/2023 5:23 PM Age: 68 years old Clinical indication: Pain; Chest pressure; Additional info: Chest pain TECHNIQUE: Imaging protocol: Radiologic exam of the chest. Views: 1 view. COMPARISON: DX CXR2V XR chest 2V 08/14/2018 11:30 AM FINDINGS: Lungs: Lung volumes are somewhat decreased which may be due to body habitus. No infiltrates or overt CHF. Pleural spaces: Unremarkable. No pleural effusion. No pneumothorax. Heart/Mediastinum: Heart appears mildly enlarged, accentuated by decreased lung volumes and portable technique. Bones/joints: Unremarkable for age. No acute abnormalities. IMPRESSION: Mild cardiomegaly, decreased lung volumes, otherwise negative chest.
--- NOTE | 2023-06-08 17:18 | ECG_ITS ---
APPROVED REPORT Exam: Resting ECG HR:84 bpm ECG Measurements Heart Rate 84 AXES MT 162 P 85 QRSd 86 QRS 52 QT 361 T 59 QTc 403 Conclusion SINUS RHYTHM MODERATE ST DEPRESSION [0.05+ mV ST DEPRESSION] ABNORMAL ECG UNCONFIRMED REPORT Electronically signed by : Cm Fitzgerald MD 06/09/2023 19:54:15
--- NOTE | 2023-06-08 17:28 | PC.NURSE ---
XR AT BEDSIDE
[2023-06-08 17:32] LABS: Basophils % 0.2 % (0.1-2.0); Eosinophils % 0.4 % (0.1-12.0); Hematocrit 42.1 % (37.0-47.0); Hemoglobin 13.8 g/dL (12.2-16.2); Lymphocytes # 1.2 K/mm3 (0.7-4.5); Lymphocytes % 17.7 % (10-50); Mean Corpuscular HGB Conc 32.8 g/dL (31.8-35.4); Mean Corpuscular Hemoglobin 28.6 pg (27.0-31.2); Mean Corpuscular Volume 87.3 fl (81-99); Mean Platelet Volume 7.7 fl (7.4-10.4); Monocytes # 0.3 K/mm3 (0.1-1.0); Monocytes % 4.8 % (1.7-9.3); Neutrophils # 5.3 K/mm3 (1.8-7.8); Neutrophils % 76.9 % (37.0-80.0); Platelet Count 328 K/mm3 (142-424); Red Blood Count 4.83 M/mm3 (4.20-5.40); Red Cell Distribution Width 13.7 % (11.5-17.5); White Blood Count 6.9 K/mm3 (4.8-10.8)
[2023-06-08 17:34] LABS: Chloride 102 mmol/L (98-107); Potassium 3.5 mmoL/L (3.5-5.1); Sodium 137 mmol/L (136-145)
[2023-06-08 17:37] LABS: Alanine Aminotransferase 25 U/L (12-78); Albumin Level 5.1 g/dl (3.5-5.0); Albumin/Globulin Ratio 1.4 (1.1-1.8); Alkaline Phosphatase 103 U/L (38-126); Anion Gap 15.5 mEq/L (5-15); Aspartate Amino Transferase 28 U/L (14-36); Bilirubin,Total 0.8 mg/dl (0.2-1.3); Blood Urea Nitrogen 9 mg/dl (7-17); Carbon Dioxide 23 mmol/L (22.0-30.0); Creatinine Clearance Estimated 51 mL/min (50-200); Estimated Glomerular Filt Rate 99 ml/min (>60); GFR (African American) 120 ML/MIN (>60); Globulin 3.6 g/dL (1.3-3.2); Total Protein,Serum 8.7 g/dl (6.3-8.2)
[2023-06-08 17:38] LABS: Calcium 10.7 mg/dl (8.4-10.2); Glucose 134 mg/dl (74-100)
--- NOTE | 2023-06-08 17:43 | CT_ITS ---
PROCEDURE INFORMATION: Exam: CT Chest With Contrast; Diagnostic Exam date and time: 06/08/2023 5:54 PM Age: 68 years old Clinical indication: Other: Weight loss, ; additional info: N/v x4 months, 35 lbs unintentional wt loss TECHNIQUE: Imaging protocol: Diagnostic computed tomography of the chest with contrast. Radiation optimization: All CT scans at this facility use at least one of these dose optimization techniques: automated exposure control; mA and/or kV adjustment per patient size (includes targeted exams where dose is matched to clinical indication); or iterative reconstruction. Contrast material: ISOVUE; Contrast volume: 75 ml; Contrast route: IV; REPORTING DATA: Count of CT and Cardiac NM exams in prior 12 months: This patient has received 2 known CTs and 0 known cardiac nuclear medicine studies in the 12 months prior to the current study. COMPARISON: CR XR CHEST PORTABLE 06/08/2023 5:23 PM FINDINGS: Limitations: Study is technically limited due to motion artifact. Lungs: Scattered linear atelectasis lower lung zones otherwise lung duncan are essentially clear when allowing for motion artifact. No nodules or masses detected. Pleural spaces: Unremarkable. No pneumothorax. No pleural effusion. Heart: Heart is borderline enlarged. Mild calcification of coronary arteries. No significant pericardial effusion. Lymph nodes: No significant mediastinal, hilar or axillary lymphadenopathy. Scattered granulomatous calcifications within the mediastinum and both hilum. Vasculature: Unremarkable. No aortic aneurysm. Bones/joints: There are no acute bony abnormalities or suspicious bone lesions detected. Soft tissues: Unremarkable. IMPRESSION: Technically limited study. No evidence of intrathoracic malignancy or metastatic disease
--- NOTE | 2023-06-08 17:43 | CT_ITS ---
PROCEDURE INFORMATION: Exam: CT Abdomen And Pelvis With Contrast Exam date and time: 06/08/2023 5:54 PM Age: 68 years old Clinical indication: Nausea and vomiting; Additional info: N/v x4 months, 35 lbs unintentional wt loss TECHNIQUE: Imaging protocol: Computed tomography of the abdomen and pelvis with contrast. Radiation optimization: All CT scans at this facility use at least one of these dose optimization techniques: automated exposure control; mA and/or kV adjustment per patient size (includes targeted exams where dose is matched to clinical indication); or iterative reconstruction. Contrast material: ISOVUE; Contrast volume: 75 ml; Contrast route: IV; REPORTING DATA: Count of CT and Cardiac NM exams in prior 12 months: This patient has received 2 known CTs and 0 known cardiac nuclear medicine studies in the 12 months prior to the current study. COMPARISON: CR XR CHEST PORTABLE 06/08/2023 5:23 PM FINDINGS: Lungs: There are minor atelectatic changes at the lung bases. Diaphragm: Small hiatal hernia. Surgical clips noted at the GE junction. Liver: There are few small hypodensities within the liver too small to adequately characterize but statistically likely representing small liver cysts. Gallbladder and bile ducts: Normal. No calcified stones. No ductal dilation. Pancreas: Normal. No ductal dilation. Spleen: Normal. No splenomegaly. Adrenal glands: Normal. No mass. Kidneys and ureters: See Vasculature finding. Stomach and bowel: Multiple diverticuli descending and sigmoid colon without evidence of acute diverticulitis. Appendix: No evidence of appendicitis. Intraperitoneal space: Unremarkable. No free air. No significant fluid collection. 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 Small benign appearing cortical cyst right kidney. Scattered atherosclerotic changes of the abdominal aorta and iliac vessels. No aortic aneurysm. Lymph nodes: Unremarkable. No enlarged lymph nodes. Urinary bladder: Unremarkable as visualized. Reproductive: Uterus has been removed. No adnexal mass detected. Bones/joints: Unremarkable. No acute fracture. Soft tissues: Unremarkable. IMPRESSION: 1. No acute findings within the abdomen or pelvis. 2. Colonic diverticulosis. No evidence of acute diverticulitis. 3. 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 COMMENTS: Consistent with the [employer]'s Incidental Findings Committee white paper (J Am Lucia Radiol 2018): Any incidental renal lesion less than 1 cm or classified as too small to characterize, or any incidental cystic renal lesion characterized as simple-appearing, is likely benign. No follow-up imaging is recommended for these lesions per consensus recommendations based on imaging criteria.
--- NOTE | 2023-06-08 17:44 | HMH.EDGENADL ---
Discharge Plan Disposition Patient Disposition: Home, Self-Care Prescriptions Prescriptions: New ondansetron 4 mg tablet,disintegrating 4 mg PO Q6H PRN (Reason: nausea and vomiting) 5 Days Qty: 20 0RF No Action Slow Fe 142 mg (45 mg iron) tablet extended release 142 mg PO DAILY Qulipta 60 mg tablet 60 mg PO DAILY Qty: 30 5RF Nurtec ODT 75 mg tablet,disintegrating 75 mg PO Q OTHER DAY MDD 75 mg qod PRN (Reason: migraine headache) Qty: 10 5RF aspirin 81 mg tablet,delayed release (DR/EC) 81 mg PO DAILY rosuvastatin 10 mg tablet 10 mg PO ONCE cyanocobalamin (vitamin B-12) 1,000 mcg tablet See Rx Instructions .ROUTE .COMPLEX Qty: 30 3RF Dose Instruction: Take 1 tablet by mouth once daily Rx Instructions: Take 1 tablet by mouth once daily sertraline 100 mg tablet See Rx Instructions .ROUTE .COMPLEX Qty: 30 1RF Dose Instruction: Take 1 Tablet by mouth once daily for depression. Rx Instructions: Take 1 Tablet by mouth once daily for depression. pregabalin 150 mg capsule 150 mg PO BID Qty: 60 0RF cefuroxime axetil 500 mg tablet 500 mg PO BID Qty: 14 0RF levothyroxine 137 mcg capsule 137 mcg PO DAILY Qty: 30 3RF olanzapine [Zyprexa] 2.5 mg tablet 2.5 mg PO HS Qty: 30 2RF ergocalciferol (vitamin D2) 1,250 mcg (50,000 unit) capsule See Rx Instructions .ROUTE .COMPLEX Qty: 4 1RF Dose Instruction: Take 1 Capsule by mouth once weekly for supplement. Rx Instructions: Take 1 Capsule by mouth once weekly for supplement. Referrals Follow up/Referrals: Reol Todd MD [Staff Physician] - See instructions (for EGD ) ProviderClaude MD [Referring] - See instructions Activity Restrictions/Add. Instructions Additional Instructions/Restrictions: No explanation today for your chronic nausea and vomiting and unintentional weight loss. I recommend you follow-up with Dr. Todd or another hoop maker helper machine for an outpatient EGD please continue to discuss this with your primary care doctor as well. Clinical Impressions Clinical Impression: Nausea & vomiting, Unintentional weight loss Discharge ED Provider: Abby Fay General Adult HPI General Chief complaint: Chest Pain Stated complaint: chest pain Time Seen by Provider: 06/08/23 17:38 Mode of Arrival: Wheelchair Source of Information: Patient and Spouse Limitations: No Limitations Description of Symptoms (Recalled from ER Triage Doc. by RN): PT PRESENTS WITH INTERMITTENT SHARP LEFT CHEST PAIN THAT BEGAN THIS AM, REPORTS NO SLEEP LAST NIGHT PAIN RADITES TO RIGHT RIBS. REPORTS NAUSEA, 2-3 EPISODES OF DIARRHEA TODAY. REPORTS HEADACHE FOR 3 YEARS, WEIGHT LOSS OVER 2-3 MONTHS, DECREASED APPETITE AND INTAKE FOR 2-3 MONTHS. PT REPORTS TREMOR FOR 2-3 MONTHS. History of Present Illness HPI narrative: Patient is a 68-year-old female with a history of a Divina fundoplication who presents today with nausea and vomiting x4 months 35 pounds of unintentional weight loss and failure to thrive. She denies any significant pain no fevers or chills she has not had an EGD or any type of imaging of her chest abdomen or pelvis since this has begun. No hematemesis nonbloody nonbilious emesis no melena. No significant abdominal pain. Related Data Home Medications Medication Instructions Recorded Confirmed aspirin 81 mg tablet,delayed 81 mg PO DAILY [facility] 03/06/20 05/09/23 release rosuvastatin 10 mg tablet 10 mg PO ONCE 07/02/21 05/09/23 ferrous sulfate 142 mg (45 mg 142 mg PO DAILY 05/06/23 05/09/23 iron) tablet,extended release (Slow Fe) Previous Rx's Medication Instructions Recorded cyanocobalamin (vitamin B-12) See Rx Instructions .Route 04/18/23 1,000 mcg tablet .COMPLEX #30 tabs sertraline 100 mg tablet See Rx Instructions .Route 04/22/23 .COMPLEX #30 tabs pregabalin 150 mg capsule 150 mg PO BID RLS #60 caps 04/23/23 atogepant 60 mg tablet (Qulipta)
[2023-06-08 17:49] LABS: Troponin I 0.03 ng/ml (0.00-0.034)
--- NOTE | 2023-06-08 17:49 | PC.NURSE ---
PT TO CT
--- NOTE | 2023-06-08 17:49 | PC.NURSE ---
pt to rad
[2023-06-08 18:31] VITALS: BP 173/85; PULSE 82; RESP 20; O2SAT 99
[2023-06-08 20:44] VITALS: BP 119/72; PULSE 79; RESP 16; TEMP 36.7; O2SAT 99
== END 2023-06-08 20:48 | disposition home or self-care (01) ==
PROVIDERS: Emergency Provider Student in an Organized Health Care Education/Training Program; PCP Family Medicine
DX: R07.9 Chest pain, unspecified (principal); R11.2 Nausea with vomiting, unspecified; R51.9 Headache, unspecified; R19.7 Diarrhea, unspecified; R63.4 Abnormal weight loss; F41.9 Anxiety disorder, unspecified
CPT/HCPCS: 71045; 71260; 74177; 80053; 84484; 85025; 93005; 96361; 96374; 99285; J2405; Q9967

== ENCOUNTER 2023-06-09 02:19 | Emergency (ER) | payer MEDICARE, SELFPAY ==
[2023-06-09] VITALS (10 sets, daily range): BP systolic 122–191; BP diastolic 7–113; PULSE 40–116; RESP 16–18; TEMP 36.6–36.7; O2SAT 76–100; BMI 23.1
--- NOTE | 2023-06-09 03:01 | HMH.EDGENADL ---
Discharge Plan Disposition Patient Disposition: Home, Self-Care Condition: Good Prescriptions Prescriptions: No Action Slow Fe 142 mg (45 mg iron) tablet extended release 142 mg PO DAILY Qulipta 60 mg tablet 60 mg PO DAILY Qty: 30 5RF Nurtec ODT 75 mg tablet,disintegrating 75 mg PO Q OTHER DAY MDD 75 mg qod PRN (Reason: migraine headache) Qty: 10 5RF aspirin 81 mg tablet,delayed release (DR/EC) 81 mg PO DAILY rosuvastatin 10 mg tablet 10 mg PO ONCE cyanocobalamin (vitamin B-12) 1,000 mcg tablet See Rx Instructions .ROUTE .COMPLEX Qty: 30 3RF Dose Instruction: Take 1 tablet by mouth once daily Rx Instructions: Take 1 tablet by mouth once daily sertraline 100 mg tablet See Rx Instructions .ROUTE .COMPLEX Qty: 30 1RF Dose Instruction: Take 1 Tablet by mouth once daily for depression. Rx Instructions: Take 1 Tablet by mouth once daily for depression. pregabalin 150 mg capsule 150 mg PO BID Qty: 60 0RF cefuroxime axetil 500 mg tablet 500 mg PO BID Qty: 14 0RF levothyroxine 137 mcg capsule 137 mcg PO DAILY Qty: 30 3RF olanzapine [Zyprexa] 2.5 mg tablet 2.5 mg PO HS Qty: 30 2RF ergocalciferol (vitamin D2) 1,250 mcg (50,000 unit) capsule See Rx Instructions .ROUTE .COMPLEX Qty: 4 1RF Dose Instruction: Take 1 Capsule by mouth once weekly for supplement. Rx Instructions: Take 1 Capsule by mouth once weekly for supplement. ondansetron 4 mg tablet,disintegrating 4 mg PO Q6H PRN (Reason: nausea and vomiting) 5 Days Qty: 20 0RF Referrals Follow up/Referrals: Homero Sloan MD [Primary Care Provider] - See instructions Activity Restrictions/Add. Instructions Additional Instructions/Restrictions: Please take Zofran as previously prescribed. Please follow-up with your primary care provider. Please return to the emergency department if you develop any new or worsening symptoms or become concerned for your health. Clinical Impressions Clinical Impression: Nausea & vomiting Instructions Patient Instructions: DI for Diarrhea and Traveler's Diarrhea -- Adult, DI for Diarrhea and Traveler's Diarrhea -- Child, DI for Nausea -- Adult, DI for Nausea -- Child Discharge ED Provider: Jay,Peterson General Adult HPI General Chief complaint: Nausea/Vomiting/Diarrhea Stated complaint: Vomiting,unable to eat Time Seen by Provider: 06/09/23 02:27 Mode of Arrival: Wheelchair Source of Information: Patient and Spouse Limitations: No Limitations Description of Symptoms (Recalled from ER Triage Doc. by RN): pt c/o N/V/D since yesterday morning, minimally SOA, foamy yellow emesis, and insomnia. pt d/c a few hours ago from this ED. pt states she has vomitted q5-10 minutes since leaving. History of Present Illness HPI narrative: 68-year-old female history of prior Divina fundoplication presents with persistent nausea and vomiting. Reports that she has had significant weight loss recently. Reports this. Nausea and vomiting has been worse over the last couple of days. She was seen in the ED a few hours prior to arrival. At that time she had a full work-up including blood work and CT chest and CT abdomen pelvis which showed no acute findings. She returned to the ED now because she is having frequent dry heaves and has been unable to tolerate p.o. at home. Reports mild right lower quadrant discomfort. Reports that she was recently treated for UTI. Related Data Home Medications Medication Instructions Recorded Confirmed aspirin 81 mg tablet,delayed 81 mg PO DAILY [facility] 03/06/20 05/09/23 release rosuvastatin 10 mg tablet 10 mg PO ONCE 07/02/21 05/09/23 ferrous sulfate 142 mg (45 mg 142 mg PO DAILY 05/06/23 05/09/23 iron) tablet,extended release (Slow Fe) Previous Rx's Medication Instructions Recorded cyanocobalamin (vitamin B-12) See Rx Instructions .Route 04/18/23 1,000 mcg tablet .COMPLEX #30 tabs se
[2023-06-09 03:05] LABS: Microscopic, Urine URINE MICROSCOPIC (MICROSCOPIC)
[2023-06-09 03:11] LABS: Appearance,Urine CLEAR (Clear); Bilirubin,Urine Negative (Negative); Blood, Urine 2+ (Negative); Color,Urine YELLOW (Yellow); Glucose,Urine (UA) TRACE (Negative); Ketones,Urine 2+ (Negative); Leukocyte Esterase,Urine Negative (Negative); Nitrate,Urine Negative (Negative); PH,Urine 6.5 (5.0-8.5); Protein,Urine 2+ (Negative); Specific Gravity, Urine 1.025 (1.005-1.030); Urobilinogen,Urine 0.2 EU/dl (0.2)
[2023-06-09 03:20] LABS: Lipase 84 U/L (23-300)
[2023-06-09 03:26] LABS: Bacteria,Urine Trace /lpf; WBC,Urine Occasional #/hpf (0-3)
--- NOTE | 2023-06-09 04:02 | PC.NURSE ---
Pt. asked for something to drink I spoke with MD and he OK'd a few sips, patient given blanket to wrap around her shoulders due to complaints of being cold
== END 2023-06-09 06:50 | disposition home or self-care (01) ==
PROVIDERS: Emergency Provider Emergency Medicine; PCP Family Medicine
DX: R11.2 Nausea with vomiting, unspecified (principal); F41.9 Anxiety disorder, unspecified; G43.909 Migraine, unspecified, not intractable, without status migrainosus; R10.31 Right lower quadrant pain
CPT/HCPCS: 81001; 83690; 87086; 96361; 96372; 96374; 96375; 99284; 99285

== ENCOUNTER → 2023-06-12 13:43 | Outpatient (CLI) | payer MEDICARE, SELFPAY ==
[2023-06-14 08:19] LABS: AFP, Tumor Marker 1.9 ng/mL (0.0-9.2); CEA 1.4 ng/mL (0.0-4.7)
== END ==
PROVIDERS: PCP Family Medicine; Visit Provider Nurse Practitioner
DX: R13.19 Other dysphagia; R11.2 Nausea with vomiting, unspecified; R63.0 Anorexia; R63.4 Abnormal weight loss; E83.10 Disorder of iron metabolism, unspecified
CPT/HCPCS: 36415; 82105; 82378

== ENCOUNTER → 2023-06-27 08:36 | Outpatient (CLI) | payer MEDICARE, SELFPAY ==
--- NOTE | 2023-06-27 08:36 | FL_ITS ---
FINAL REPORT CLINICAL HISTORY: dysphagia Fluoro time: 1 min FINDINGS: ESOPHAGRAM HISTORY: Abdominal pain, nausea. PROCEDURE: The patient ingested barium. Effervescent crystals were also administered. Spot and overhead films were obtained. FINDINGS: The esophagus is normal caliber. There are no extrinsic lesions. There is esophageal dysmotility. There is a small sliding-type hiatal hernia. There is gastroesophageal reflux to the level of the mid esophagus. IMPRESSION: Esophageal dysmotility with small sliding type hiatal hernia and gastroesophageal reflux to the level of the midesophagus Films reviewed , interpreted and dictated by Dr. Lind Transcribed by Jt Munoz PA-C. Reviewed, Interpreted and Dictated by Roel Lind III, MD Transcribed by KARON Chairez Authenticated and [facility]
--- NOTE | 2023-06-27 08:36 | US_ITS ---
FINAL REPORT CLINICAL HISTORY: Right upper quadrant pain on exam. COMPARISON: None FINDINGS: Sonographic images of the right upper quadrant were obtained. The pancreas is partially obscured. There is fatty infiltration of the liver. Sludge is noted in the gallbladder without well-defined stone. There is no evidence of biliary ductal dilatation.The common duct measures 2 mm. There is a 1.3 cm cyst in the right kidney. IMPRESSION: Fatty liver. Gallbladder sludge without well-defined stone. Right renal cyst. Reviewed, Interpreted and Dictated by Roel Lind III, MD Transcribed by Cookie Smyth Authenticated and [facility] [place] [place]
== END ==
PROVIDERS: PCP Family Medicine; Visit Provider Nurse Practitioner
DX: R11.2 Nausea with vomiting, unspecified (principal); R10.11 Right upper quadrant pain; R13.10 Dysphagia, unspecified; R63.4 Abnormal weight loss
CPT/HCPCS: 74220; 76705

== ENCOUNTER 2023-07-02 12:17 | Day surgery (SDC) | payer MEDICARE, SELFPAY ==
[2023-06-13 12:10] VITALS: BMI 22.3
[2023-07-02 14:01] VITALS: BP 111/75; PULSE 71; RESP 17; TEMP 36.3; O2SAT 99
--- NOTE | 2023-07-02 14:31 | P.PNANES_ITS ---
[facility] Disclaimer: The information contained in this section may have been updated after the patient was seen, as this information can be updated by other users. Medical History Anxiety disorder Decreased appetite Dysphagia Episodic migraine Lupus RLS (restless legs syndrome) Tremor Unsteady gait when walking Weight loss Surgical History H/O: hysterectomy History of Divina fundoplication History of shoulder surgery Family History Other Family history of cancer Family history of diabetes mellitus type II Family history of myocardial infarction Family history of stroke Social History Smoking Status: Former smoker quit date: 05/16/02 alcohol intake: never substance use type: denies use current occupational status: retired Travel in the last 8 weeks: None household members: spouse housing: house lives independently: No marital status: education level: high school service: No penitentiary: No caffeine: Yes do you feel safe at home: Yes victim of physical abuse: No victim of emotional abuse: No victim of sexual abuse: No would you like helpful sources: No [facility] Anesthesia Checklist Patient Identification Patient Identification: Arm Band and Verbal (Name & ) Structural Data Admitted From: Home Planned Operative Procedure/s: EGD Consent for Planned Operative Procedure(s) Verified: Yes NPO Status Verified Time NPO: 00:00 Additional verifications Anesthesia Reactions: No Hx Blood Transfusions: No Blood Transfusion Reaction: No Airway Assessment Mallampati Score:: Class II C-Spine Mobility Assessed: Yes TMJ Mobility Assessed: Yes Dentition: Dentures-poor fitting Neurological Assessment Level of Consciousness: Awake Hx Seizures: Yes Numbness or tingling in extremities: No Anesthesia Plan Anesthesia Risk discussed: Yes Anesthesia Plan: Verified ASA Class: II Anesthesia Type: MAC
[2023-07-02 14:35] VITALS: O2SAT 99
--- NOTE | 2023-07-02 14:52 | P.PCN_ITS ---
Procedure: Date: 07/02/23 Patient Date of :: 1955 Procedure Performed:: EGD Indications:: Dysphagia Performing Provider:: Shaji Britton MD Referring Provider:: Ruth Laurent APRN Sedation:: See RN records Procedure:: The gastroscope was gently passed through the incisoral orifice into the oral cavity and under direct visualization the esophagus was intubated. The endoscope was passed down the esophagus, through the stomach, and into the duodenum. Color, texture, mucosa, and anatomy of the esophagus, stomach, and duodenum were carefully examined with the scope. Findings:: Oropharynx: normal Esophagus: irregular z-line. Ulcerative esophagitis. Peñaloza's esophagus. [place] Classification C0M1.5. Biopsies obtained. Empiric esophageal dilatation perfor med sequentially with 18-20 mm tts balloon. EG Junction: measured at 35 cm Cardia: small hiatal hernia Body: normal Antrum: normal Duodenal bulb: normal Duodenum (second and third portion): normal Impression: Ulcerative esophagitis Peñaloza's esophagus Hiatal hernia Recommendations:: Await pathology results Pantoprazole 40 mg once daily Repeat EGD in 3 months Complications:: None Estimated blood obtained (mL): 0 Colonoscopy Component Colonoscopy Component Was a colonoscopy performed during today's procedure?: No
[2023-07-02 14:55] VITALS: BP 146/67; PULSE 70; RESP 14; TEMP 36.4; O2SAT 93
[2023-07-02 15:05] VITALS: BP 136/66; PULSE 66; RESP 15; TEMP 36.4; O2SAT 94
[2023-07-02 15:15] VITALS: BP 132/78; PULSE 67; RESP 18; TEMP 36.4; O2SAT 98
[2023-07-02 15:25] VITALS: BP 135/87; PULSE 69; RESP 18; TEMP 36.4; O2SAT 98
== END 2023-07-02 15:25 | disposition home or self-care (01) ==
PROVIDERS: PCP Family Medicine; Visit Provider Internal Medicine
PROC: 0DJ08ZZ Inspection of Upper Intestinal Tract, Via Natural or Artificial Opening Endoscopic (ICD-10-PCS; CPT 43235; principal; 2023-07-02 13:30)
DX: K22.70 Barrett's esophagus without dysplasia (principal); K44.9 Diaphragmatic hernia without obstruction or gangrene
CPT/HCPCS: 43239; 43249; 88305; 88341; 88342; C1726

== ENCOUNTER 2023-10-01 07:58 | Day surgery (SDC) | payer MEDICARE, SELFPAY ==
[2023-10-01 08:26] VITALS: BP 154/87; PULSE 81; RESP 16; TEMP 37.1; O2SAT 99; BMI 20.9
--- NOTE | 2023-10-01 09:07 | P.PNANES_ITS ---
[facility] Disclaimer: The information contained in this section may have been updated after the patient was seen, as this information can be updated by other users. Medical History Anxiety disorder Peñaloza's esophagus with esophagitis Decreased appetite Dysphagia Episodic migraine Lupus RLS (restless legs syndrome) Tremor Unsteady gait when walking Weight loss Surgical History H/O: hysterectomy History of Divina fundoplication History of shoulder surgery Family History Other Family history of cancer Family history of diabetes mellitus type II Family history of myocardial infarction Family history of stroke Social History Smoking Status: Former smoker alcohol intake: never substance use type: denies use current occupational status: retired Travel in the last 8 weeks: None household members: spouse housing: house lives independently: No marital status: education level: high school service: No jail: No caffeine: Yes do you feel safe at home: Yes victim of physical abuse: No victim of emotional abuse: No victim of sexual abuse: No would you like helpful sources: No [facility] Anesthesia Checklist Patient Identification Patient Identification: Arm Band and Verbal (Name & ) Structural Data Admitted From: Home Planned Operative Procedure/s: EGD Consent for Planned Operative Procedure(s) Verified: Yes NPO Status Verified Time NPO: 00:00 Additional verifications Anesthesia Reactions: No Hx Blood Transfusions: No Blood Transfusion Reaction: No Airway Assessment Mallampati Score:: Class II C-Spine Mobility Assessed: Yes TMJ Mobility Assessed: Yes Dentition: Dentures-poor fitting Neurological Assessment Level of Consciousness: Awake Hx Seizures: No Numbness or tingling in extremities: No Anesthesia Plan Anesthesia Risk discussed: Yes Anesthesia Plan: Verified ASA Class: III Anesthesia Type: MAC
[2023-10-01 09:15] VITALS: O2SAT 100
--- NOTE | 2023-10-01 09:20 | HMH.SCOPE ---
Procedure: Date: 10/01/23 Patient Date of :: 1955 Procedure Performed:: EGD Indications:: The patient is a 68 year old who presents for follow up EGD for having had EGD 3 months prior that showed Peñaloza's esophagus and ulcerative eosophagitis. Performing Provider:: Shaji Britton MD Referring Provider:: Luther KEITH MD Sedation:: See RN records Procedure:: The gastroscope was gently passed through the incisoral orifice into the oral cavity and under direct visualization the esophagus was intubated. The endoscope was passed down the esophagus, through the stomach, and into the duodenum. Color, texture, mucosa, and anatomy of the esophagus, stomach, and duodenum were carefully examined with the scope. Findings:: Oropharynx: normal Esophagus: Peñaloza's esophagus. [place] Classification C0M1. Biopsies obtained EG Junction: measured at 35 cm Cardia: normal Fundus: normal Body: normal Antrum: normal Duodenal bulb: normal Duodenum (second and third portion): normal Impression: Peñaloza's esophagus, C0M1 Recommendations:: Await pathology results Continue pantoprazole 40 mg once daily Repeat EGD in 3 years Complications:: none Estimated blood obtained (mL): 0 Colonoscopy Component Colonoscopy Component Was a colonoscopy performed during today's procedure?: No
[2023-10-01 09:22] VITALS: BP 138/75; PULSE 70; RESP 14; TEMP 37.3; O2SAT 92
[2023-10-01 09:32] VITALS: BP 134/71; PULSE 69; RESP 16; O2SAT 92
[2023-10-01 09:42] VITALS: BP 131/71; PULSE 72; RESP 16; O2SAT 95
[2023-10-01 09:52] VITALS: BP 135/75; PULSE 73; RESP 16; TEMP 36.6; O2SAT 97
== END 2023-10-01 09:52 | disposition home or self-care (01) ==
PROVIDERS: PCP Family Medicine; Visit Provider Internal Medicine
PROC: 0DJ08ZZ Inspection of Upper Intestinal Tract, Via Natural or Artificial Opening Endoscopic (ICD-10-PCS; CPT 43235; principal; 2023-10-01 09:00)
DX: K22.70 Barrett's esophagus without dysplasia (principal); K20.90 Esophagitis, unspecified without bleeding; K31.A0 Gastric intestinal metaplasia, unspecified
CPT/HCPCS: 43239; 88305

== ENCOUNTER → 2023-10-28 10:33 | Outpatient (CLI) | payer MEDICARE, SELFPAY ==
--- NOTE | 2023-10-28 10:51 | XR_ITS ---
FINAL REPORT TECHNIQUE: Chest PA & Lateral CLINICAL HISTORY: cough, wheeze, weakness COMPARISON: 06/08/2023 FINDINGS: 2 views of the chest were performed. The heart size is normal. The mediastinum is within normal limits. Hyperinflation is present. There is no acute cardiopulmonary process. There are no pleural effusions. There is no pneumothorax. The bony thorax appears intact. IMPRESSION: No acute cardiopulmonary process. Reviewed, Interpreted and Dictated by Ba Bhakta MD Transcribed by Kaitlynn Miller Authenticated and [facility]
[2023-10-28 11:28] LABS: Basophils % 0.2 % (0.1-2.0); Eosinophils % 0.2 % (0.1-12.0); Hematocrit 40.1 % (37.0-47.0); Hemoglobin 13.9 g/dL (12.2-16.2); Lymphocytes % 13.3 % (10-50); Mean Corpuscular HGB Conc 34.8 g/dL (31.8-35.4); Mean Corpuscular Hemoglobin 29.1 pg (27.0-31.2); Mean Corpuscular Volume 83.7 fl (81-99); Mean Platelet Volume 6.9 fl (7.4-10.4); Monocytes # 0.3 K/mm3 (0.1-1.0); Monocytes % 3.6 % (1.7-9.3); Neutrophils # 5.9 K/mm3 (1.8-7.8); Neutrophils % 82.8 % (37.0-80.0); Platelet Count 324 K/mm3 (142-424); Red Blood Count 4.78 M/mm3 (4.20-5.40); Red Cell Distribution Width 15.5 % (11.5-17.5); White Blood Count 7.1 K/mm3 (4.8-10.8)
[2023-10-28 11:46] LABS: Hemoglobin A1C 5.5 % (4.0-6.0)
[2023-10-28 12:17] LABS: Chloride 94 mmol/L (98-107); Potassium 3.4 mmoL/L (3.5-5.1); Sodium 130 mmol/L (136-145)
[2023-10-28 12:20] LABS: Alanine Aminotransferase 23 U/L (12-78); Albumin/Globulin Ratio 1.7 (1.1-1.8); Alkaline Phosphatase 103 U/L (38-126); Anion Gap 15.4 mEq/L (5-15); Aspartate Amino Transferase 29 U/L (14-36); Blood Urea Nitrogen 11 mg/dl (7-17); Carbon Dioxide 24 mmol/L (22.0-30.0); Estimated Glomerular Filt Rate 71 ml/min (>60); GFR (African American) 86 ML/MIN (>60); Globulin 2.9 g/dL (1.3-3.2); Total Protein,Serum 7.9 g/dl (6.3-8.2)
[2023-10-28 12:21] LABS: Calcium 9.6 mg/dl (8.4-10.2); Glucose 135 mg/dl (74-100)
== END ==
PROVIDERS: PCP Family Medicine; Visit Provider Nurse Practitioner
DX: R53.1 Weakness (principal); Z86.39 Personal history of other endocrine, nutritional and metabolic disease; R05.9 Cough, unspecified; R06.2 Wheezing; B95.1 Streptococcus, group B, as the cause of diseases classified elsewhere
CPT/HCPCS: 36415; 71046; 80053; 83036; 84443; 85025; 87086

== ENCOUNTER 2023-11-01 13:11 | Observation (INO) | payer MEDICARE, SELFPAY ==
[2023-11-01 13:13] VITALS: BP 132/93; PULSE 79; RESP 18; TEMP 36.3; O2SAT 99; BMI 20.2
--- NOTE | 2023-11-01 14:12 | CT_ITS ---
PROCEDURE INFORMATION: Exam: CT Head Without Contrast Exam date and time: 11/01/2023 2:29 PM Age: 68 years old Clinical indication: Altered mental status/memory loss; Additional info: AMS TECHNIQUE: Imaging protocol: Computed tomography of the head without contrast. Radiation optimization: All CT scans at this facility use at least one of these dose optimization techniques: automated exposure control; mA and/or kV adjustment per patient size (includes targeted exams where dose is matched to clinical indication); or iterative reconstruction. REPORTING DATA: Count of CT and Cardiac NM exams in prior 12 months: This patient has received 4 known [address]s and 0 known cardiac nuclear medicine studies in the 12 months prior to the current study. COMPARISON: CT ANGIO HEAD WITH W/O 05/21/2023 10:12 AM FINDINGS: Brain: The brain demonstrates generalized volume loss and chronic small-vessel ischemic change. No obvious intracranial mass effect or hemorrhage. No obvious large evolving territorial infarct. Cerebral ventricles: The ventricles are enlarged in keeping with volume loss. Paranasal sinuses: Visualized sinuses are unremarkable. No fluid levels. Mastoid air cells: Visualized mastoid air cells are well aerated. Bones/joints: Unremarkable. No acute fracture. Soft tissues: Unremarkable. IMPRESSION: 1. In spite of repeat imaging, images are motion degraded. 2. Considering motion artifacts, no acute intracranial findings suspected.
--- NOTE | 2023-11-01 14:13 | XR_ITS ---
PROCEDURE INFORMATION: Exam: XR Chest Exam date and time: 11/01/2023 2:35 PM Age: 68 years old Clinical indication: Dyspnea TECHNIQUE: Imaging protocol: Radiologic exam of the chest. Views: 1 view. COMPARISON: CR XR CHEST 2V 10/28/2023 11:05 AM FINDINGS: Lungs: The lungs demonstrate hyperinflation and interstitial prominence suggesting COPD. There are calcified granulomata. No lobar consolidation seen. Compared to the prior study, mild worsening of basilar interstitial thickening; may be consistent with inflammation, infection or edema. Pleural spaces: Unremarkable. No pleural effusion. No pneumothorax. Heart/Mediastinum: Stable. No cardiomegaly. Bones/joints: Mild scoliosis. No acute fracture seen. Intraperitoneal space: There are surgical clips in the upper abdomen. IMPRESSION: Increased basilar interstitial prominence compared to the prior study may be consistent with inflammation, infection or edema. No evidence of lobar pneumonia.
--- NOTE | 2023-11-01 14:14 | HMH.EDGENADL ---
Discharge Plan Disposition Patient Disposition: Admitted Chief Complaint: Weakness Prescriptions Prescriptions: No Action duloxetine [Cymbalta] 30 mg capsule,delayed release(DR/EC) 30 mg PO DAILY Qty: 30 3RF metoclopramide HCl 5 mg tablet 2.5 mg PO QAC PRN (Reason: dysphagia) Qty: 60 2RF Rx Instructions: administer 30 minutes before meals esomeprazole magnesium 40 mg capsule,delayed release(DR/EC) 40 mg PO DAILY Qty: 30 3RF promethazine 12.5 mg tablet 12.5 mg PO TID Qty: 90 2RF hydroxyzine pamoate 25 mg capsule 25 - 50 mg PO HS PRN (Reason: sleep) Qty: 60 0RF Ubrelvy 100 mg tablet 100 mg PO ONCE PRN (Reason: migraine headache) Qty: 10 0RF levofloxacin 500 mg tablet 500 mg PO Q24H Qty: 10 0RF aspirin 81 mg tablet,delayed release (DR/EC) 81 mg PO DAILY ergocalciferol (vitamin D2) 1,250 mcg (50,000 unit) capsule See Rx Instructions .ROUTE .COMPLEX Qty: 4 1RF Dose Instruction: Take 1 Capsule by mouth once weekly for supplement. Rx Instructions: Take 1 Capsule by mouth once weekly for supplement. levothyroxine 137 mcg tablet See Rx Instructions .ROUTE .COMPLEX Qty: 30 3RF Dose Instruction: TAKE 1 TABLET BY MOUTH ONCE DAILY Rx Instructions: TAKE 1 TABLET BY MOUTH ONCE DAILY cyanocobalamin (vitamin B-12) 1,000 mcg tablet See Rx Instructions .ROUTE .COMPLEX Qty: 30 3RF Dose Instruction: Take 1 tablet by mouth once daily Rx Instructions: Take 1 tablet by mouth once daily rosuvastatin 10 mg tablet See Rx Instructions .ROUTE .COMPLEX Qty: 90 0RF Dose Instruction: Take 1 tablet by mouth once daily Rx Instructions: Take 1 tablet by mouth once daily pregabalin 150 mg capsule 150 mg PO BID Qty: 60 0RF albuterol sulfate 90 mcg/actuation HFA aerosol inhaler 2 puff inhalation Q4-6H PRN (Reason: shortness of breath or wheezing) Qty: 8.5 0RF dextromethorphan-guaifenesin 60-1,200 mg tablet extended release 12 hr 1 tab PO Q12H Qty: 60 0RF olanzapine 2.5 mg tablet 2.5 mg PO HS Patient Comments: TAKE 1 TABLET BY MOUTH AT BEDTIME Qulipta 60 mg tablet 60 mg PO DAILY Referrals Follow up/Referrals: Homero Sloan MD [Primary Care Provider] - See instructions Clinical Impressions Clinical Impression: Nausea & vomiting, Encephalopathy acute, UTI (urinary tract infection), Acute hyponatremia, Acute hypokalemia Discharge ED Provider: Abby Fay General Adult HPI General Chief complaint: Weakness Stated complaint: vomiting, disoriented, unstable footing Time Seen by Provider: 11/01/23 14:03 Mode of Arrival: Wheelchair Source of Information: Spouse and Relative Limitations: No Limitations Description of Symptoms (Recalled from ER Triage Doc. by RN): Spouse states that the patient was seen at her PCP on Friday and diagnosed with a UTI. Per the patient also had wheezing which warranted a chest xray also on Friday. Family states that she has increased confusion, nausea and not eating or drinking well. History of Present Illness HPI narrative: Patient is a 68-year-old female brought in today by her for nausea and vomiting and encephalopathy. states that for the last 24 to 48 hours she has had very little to eat and it is started with nausea but her altered mental status began over the last 24 hours. She recently was diagnosed with urinary tract infection was started on Levaquin. Of note she was admitted earlier this year because of unintentional weight loss had CT chest abdomen pelvis brain MRI endoscopy all of which was unremarkable other than being diagnosed with esophagitis and Peñaloza's esophagus. No definitive malignancy has been identified in the past. Brain MRI was normal at that time. Patient had no other focal symptoms prior to today's evaluation. No fevers or chills according to . She has not had any meningismus or headache or neck sti
--- NOTE | 2023-11-01 14:17 | PC.NURSE ---
respiratory aware of vbg order and green top in lab, lab coming to draw 2nd set of bc
[2023-11-01 14:26] LABS: VBG HCO3 22.1 mmol/L (23-30); VBG PCO2 28.9 mmol/L (35-51); VBG PO2 32.3 mmol/L (28-40)
[2023-11-01 14:31] LABS: Basophils % 0.2 % (0.1-2.0); Eosinophils % 0.1 % (0.1-12.0); Hematocrit 36.8 % (37.0-47.0); Hemoglobin 12.9 g/dL (12.2-16.2); Lymphocytes # 0.8 K/mm3 (0.7-4.5); Lymphocytes % 11.5 % (10-50); Mean Corpuscular HGB Conc 35.1 g/dL (31.8-35.4); Mean Corpuscular Hemoglobin 29.6 pg (27.0-31.2); Mean Corpuscular Volume 84.3 fl (81-99); Mean Platelet Volume 7.9 fl (7.4-10.4); Monocytes # 0.3 K/mm3 (0.1-1.0); Monocytes % 3.5 % (1.7-9.3); Neutrophils # 6.1 K/mm3 (1.8-7.8); Neutrophils % 84.8 % (37.0-80.0); Platelet Count 261 K/mm3 (142-424); Red Blood Count 4.36 M/mm3 (4.20-5.40); Red Cell Distribution Width 15.9 % (11.5-17.5); White Blood Count 7.2 K/mm3 (4.8-10.8)
[2023-11-01 14:32] LABS: Chloride 92 mmol/L (98-107)
[2023-11-01 14:33] LABS: Potassium 3.1 mmoL/L (3.5-5.1); Sodium 127 mmol/L (136-145)
[2023-11-01 14:35] LABS: Alanine Aminotransferase 27 U/L (12-78); Anion Gap 16.1 mEq/L (5-15); Aspartate Amino Transferase 34 U/L (14-36); Blood Urea Nitrogen 10 mg/dl (7-17); Carbon Dioxide 22 mmol/L (22.0-30.0); Creatinine Clearance Estimated 44 mL/min (50-200); Estimated Glomerular Filt Rate 99 ml/min (>60); GFR (African American) 120 ML/MIN (>60)
[2023-11-01 14:36] LABS: Albumin Level 4.7 g/dl (3.5-5.0); Albumin/Globulin Ratio 1.6 (1.1-1.8); Alkaline Phosphatase 105 U/L (38-126); Calcium 8.8 mg/dl (8.4-10.2); Glucose 128 mg/dl (74-100); Phosphorous 3.1 mg/dl (2.5-4.5); Total Protein,Serum 7.7 g/dl (6.3-8.2)
[2023-11-01 14:50] LABS: Troponin I < 0.01 ng/ml (0.00-0.034)
[2023-11-01 15:29] LABS: Microscopic, Urine URINE MICROSCOPIC (MICROSCOPIC)
[2023-11-01 15:31] VITALS: BP 85/67; PULSE 77; O2SAT 97
[2023-11-01 15:38] LABS: Appearance,Urine CLEAR (Clear); Bilirubin,Urine Negative (Negative); Blood, Urine Negative (Negative); Color,Urine YELLOW (Yellow); Glucose,Urine (UA) Negative (Negative); Ketones,Urine 1+ (Negative); Leukocyte Esterase,Urine Negative (Negative); Nitrate,Urine Negative (Negative); PH,Urine 8.5 (5.0-8.5); Protein,Urine TRACE (Negative); Specific Gravity, Urine 1.015 (1.005-1.030)
[2023-11-01 15:39] LABS: Ammonia < 9 umol/L (9-30)
[2023-11-01 15:49] LABS: Barbiturates Screen,Urine Negative ng/ml (<200); Benzodiazepines Screen,Urine Negative ng/ml (<200)
[2023-11-01 15:51] LABS: Cannabinoid Screen,Urine Negative ng/ml (<50)
[2023-11-01 15:52] LABS: Amorphous Sediment,Urine 1+ /lpf
[2023-11-01 15:52] LABS: Methadone Screen,Urine Negative ng/ml (<300)
[2023-11-01 15:53] LABS: Opiate Screen,Urine Negative ng/ml (<300); Phencyclidine Screen,Urine Negative ng/ml (<25)
--- NOTE | 2023-11-01 16:30 | PC.NURSE ---
PLACED PT ON BEDPAN WITH ASSISTANCE BY RN'S KHANH AND MARGIE PT DID NOT LIKE BEDPAN AND ROLLED OFF OF IT IN THE BED ON HER SIDE, FAMILY AT BS
--- NOTE | 2023-11-01 16:31 | PC.NURSE ---
Report given to MARNIE Rm on Med Surg.
[2023-11-01 16:37] LABS: Chloride 96 mmol/L (98-107); Sodium 128 mmol/L (136-145)
[2023-11-01 16:39] VITALS: BP 128/68; PULSE 77; RESP 18; TEMP 36.3; O2SAT 98
[2023-11-01 16:41] LABS: Blood Urea Nitrogen 9 mg/dl (7-17); Calcium 8.8 mg/dl (8.4-10.2); Carbon Dioxide 19 mmol/L (22.0-30.0); Creatinine Clearance Estimated 44 mL/min (50-200); Estimated Glomerular Filt Rate 99 ml/min (>60); GFR (African American) 120 ML/MIN (>60); Glucose 112 mg/dl (74-100)
[2023-11-01 16:51] LABS: Cocaine Screen,Urine Negative ng/ml (<300)
[2023-11-01 17:00] VITALS: BP 162/98; PULSE 75; RESP 18; TEMP 36.4; O2SAT 98; BMI 20.9
--- NOTE | 2023-11-01 17:03 | PC.NURSE ---
pt has been admitted to the floor. She is restless and agitated. She is a poor historian and reports she started having symptoms edin. Was diagnosed with a UTI and has progressively gotten worse. States she has not eaten but did take her antibiotics as directed.
[2023-11-01 17:24] LABS: Troponin I < 0.01 ng/ml (0.00-0.034)
--- NOTE | 2023-11-01 17:50 | PC.NURSE ---
pt tolerated bed side swallow eval by nursing. spoke with ER MD. able to add regular diet @ this time
[2023-11-01 17:55] LABS: Coronavirus 19, PCR Not Detected (NotDetected); Influenza A, PCR Not Detected (NotDetected); Influenza B, PCR Not Detected (NotDetected)
--- NOTE | 2023-11-01 18:53 | PC.NURSE ---
pt is more alert and appropriate then she was upon admission. bed alarm in place. hisband @ bedside. hes staying the night
--- NOTE | 2023-11-01 19:01 | PC.NURSE ---
spoke with pharmacy [facility]. He will fix the MAR
[2023-11-01 20:00] VITALS: BP 118/87; PULSE 79; RESP 17; TEMP 36.7; O2SAT 92
[2023-11-01 21:03] LABS: Amphetamine/Metha Screen,Urine Negative ng/ml (<1000)
[2023-11-01 21:12] LABS: Troponin I 0.02 ng/ml (0.00-0.034)
--- NOTE | 2023-11-01 22:34 | PC.NURSE ---
PATIENTS IV VERY POSITIONAL. WILL NOT STRAIGHTEN ARM. ATTEMPTS X 3 TO RESTART IV WITHOUT SUCCESS PATIENT FIGHTING STAFF . WAS ABLE TO GET THE 3RD BAG OF POTASSIUM INFUSED WITH MUCH WORK.
--- NOTE | 2023-11-02 03:16 | PC.NURSE ---
SPOUSE WENT HOME AT [facility]. BED ALARM SOUNDED FREQUENTLY SINCE HE HAS LEFT. ASSISTED TO BSC 2 ASSIST, VOIDED 200 ML CLEAR YELLOW URINE. PATIENT IS CONFUSED. DENIES PAIN/DISCOMFORT.
[2023-11-02 04:00] VITALS: BP 124/78; PULSE 76; RESP 16; TEMP 37.2; O2SAT 94; BMI 20.8
--- NOTE | 2023-11-02 07:46 | EXP.HP ---
History of Present Illness *Admission Date: 11/01/23 *Reason for visit:: N/V/confusion *History of present illness: Mrs. Szymanski is a 68 year old patient of the [facility] who presented to [facility] ER yesterday with a 1 to 2 day history of nausea, vomiting and confusion. She was recently seen in the clinic and diagnosed with a UTI and treated with Levaquin. Patient is unsure why she started vomiting. Her emesis consisted of ingested food, no blood was present. She had an extensive GI work up earlier this year and was found to have Peñaloza's esophagus. [facility] Disclaimer: The information contained in this section may have been updated after the patient was seen, as this information can be updated by other users. Medical History (Updated 11/02/23 @ 07:51 by Drew Chapa MD) Anxiety disorder Peñaloza's esophagus with esophagitis Decreased appetite Dysphagia Episodic migraine History of seizure Hx of non anemic vitamin B12 deficiency Lupus Migraine RLS (restless legs syndrome) Tremor Unsteady gait when walking Weight loss Surgical History H/O: hysterectomy History of Divina fundoplication History of shoulder surgery Family History Other Family history of cancer Family history of diabetes mellitus type II Family history of myocardial infarction Family history of stroke Social History (Updated 11/01/23 @ 17:10 by Crystal Castro RN) Smoking Status: Unknown if ever smoked alcohol intake: never substance use type: denies use current occupational status: retired Travel in the last 8 weeks: None household members: spouse housing: house lives independently: No marital status: education level: high school service: No custodial: No caffeine: Yes do you feel safe at home: Yes victim of physical abuse: No victim of emotional abuse: No victim of sexual abuse: No would you like helpful sources: No Review of Systems Constitutional Constitutional: Denies chills and Denies fever(s) Eyes Eyes: Denies blurry vision ENT Ears, Nose, Mouth, and Throat: Denies bleeding gums and Denies dizziness *Cardiovascular Cardiovascular: Denies chest pain and Denies dyspnea *Respiratory Respiratory: Denies cough and Denies dyspnea *Gastrointestinal Gastrointestinal: Reports as per HPI *Genitourinary Genitourinary: Denies dysuria *Musculoskeletal Musculoskeletal: Denies arthralgias *Neurologic Neurologic: Reports confusion and Denies dizziness Psychiatric Psychiatric: Reports confusion Meds Home Medications and Allergies Home Medications Medication Instructions Recorded Confirmed Type aspirin 81 mg tablet,delayed 81 mg PO DAILY heart health 03/06/20 11/01/23 History release cyanocobalamin (vitamin B-12) See Rx Instructions .Route 08/14/23 11/01/23 Rx 1,000 mcg tablet .COMPLEX #30 tabs ergocalciferol (vitamin D2) 1,250 See Rx Instructions .Route 08/14/23 11/01/23 Rx mcg (50,000 unit) capsule .COMPLEX #4 caps levothyroxine 137 mcg tablet See Rx Instructions .Route 08/14/23 11/01/23 Rx .COMPLEX #30 tabs rosuvastatin 10 mg tablet See Rx Instructions .Route 08/14/23 11/01/23 Rx .COMPLEX #90 tabs duloxetine 30 mg capsule,delayed 30 mg PO DAILY #30 caps 09/09/23 11/01/23 Rx release (Cymbalta) esomeprazole magnesium 40 mg 40 mg PO DAILY #30 caps 09/09/23 11/01/23 Rx capsule,delayed release metoclopramide HCl 5 mg tablet 2.5 mg PO QAC PRN dysphagia #60 09/09/23 11/01/23 Rx tabs promethazine 12.5 mg tablet 12.5 mg PO TID nausea and vomiting 09/30/23 11/01/23 Rx #90 tabs olanzapine 2.5 mg tablet 2.5 mg PO HS 10/01/23 11/01/23 History pregabalin 150 mg capsule 150 mg PO BID RLS #60 caps 10/16/23 11/01/23 Rx albuterol sulfate 90 mcg/actuation 2 puff inhalation Q4-6H PRN 10/28/23 11/01/23 Rx aerosol inhaler shortness of bri
[2023-11-02 08:00] VITALS: BP 158/92; PULSE 80; RESP 16; TEMP 36.7; O2SAT 99
[2023-11-02 15:17] VITALS: BP 154/92; PULSE 74; RESP 17; TEMP 36.9; O2SAT 97
[2023-11-02 20:00] VITALS: BP 161/91; PULSE 85; RESP 20; TEMP 38; O2SAT 98
--- NOTE | 2023-11-02 23:12 | PC.NURSE ---
PATIENT CONFUSED. IV SITE VERY POSITIONAL RAC. REFUSES TO PERMIT ANOTHER IV SITE TO BE ACCESSED. UNCOOPERATIVE. THREATENS TO CALL AND GET HIM TO TAKE HER HOME. ATTEMPTS TO CLIMB OOB . WILL NOT USE HER CALL ROWE. BED ALARM AND IV PUMP ALARMING ALMOST CONTINOUSLY.
[2023-11-03 00:50] VITALS: TEMP 38.2
[2023-11-03 06:27] VITALS: TEMP 36.9
[2023-11-03 07:35] VITALS: O2SAT 95
[2023-11-03 07:50] LABS: Basophils % 0.1 % (0.1-2.0); Eosinophils % 0.2 % (0.1-12.0); Hematocrit 40.2 % (37.0-47.0); Hemoglobin 14.2 g/dL (12.2-16.2); Lymphocytes # 1.2 K/mm3 (0.7-4.5); Lymphocytes % 15.2 % (10-50); Mean Corpuscular HGB Conc 35.3 g/dL (31.8-35.4); Mean Platelet Volume 7.3 fl (7.4-10.4); Monocytes # 0.4 K/mm3 (0.1-1.0); Monocytes % 4.7 % (1.7-9.3); Neutrophils # 6.4 K/mm3 (1.8-7.8); Neutrophils % 79.8 % (37.0-80.0); Platelet Count 274 K/mm3 (142-424); Red Blood Count 4.73 M/mm3 (4.20-5.40)
[2023-11-03 07:59] LABS: Chloride 93 mmol/L (98-107); Potassium 3.2 mmoL/L (3.5-5.1); Sodium 127 mmol/L (136-145)
[2023-11-03 08:00] VITALS: BP 161/90; PULSE 73; RESP 18; TEMP 36.8; O2SAT 98
[2023-11-03 08:02] LABS: Anion Gap 16.2 mEq/L (5-15); Blood Urea Nitrogen 5 mg/dl (7-17); Calcium 9.2 mg/dl (8.4-10.2); Carbon Dioxide 21 mmol/L (22.0-30.0); Creatinine Clearance Estimated 46 mL/min (50-200); Estimated Glomerular Filt Rate 99 ml/min (>60); GFR (African American) 120 ML/MIN (>60); Glucose 112 mg/dl (74-100)
--- NOTE | 2023-11-03 09:23 | EXP.ACUTE.PN ---
Subjective *Date: 11/03/23 *Time: 09:23 Interval history: Patient feels much better today and is anxious to go home. Medical Exam Vital signs and Labs for Last 24 Hours: Vital Signs Temp Pulse Resp BP Pulse Ox O2 Del Method 11/03/23 08:00 98.2 F 73 18 161/90 H 98 Room Air 11/03/23 07:35 95 Room Air 11/03/23 06:43 Room Air 11/03/23 06:27 98.4 F 11/03/23 05:00 Room Air 11/03/23 02:54 Room Air 11/03/23 01:00 Room Air 11/03/23 00:50 100.7 F H 11/02/23 23:00 Room Air 11/02/23 21:00 Room Air 11/02/23 20:00 98 Room Air 11/02/23 20:00 100.4 F H 85 20 161/91 H 98 Room Air 11/02/23 17:00 Room Air 11/02/23 15:00 Room Air 11/02/23 15:17 98.4 F 74 17 154/92 H 97 Room Air 11/02/23 13:00 Room Air 11/02/23 11:00 Room Air 11/02/23 09:47 Room Air Intake and Output 11/02/23 11/03/23 11/03/23 23:59 07:59 15:59 Intake Total 1569 / 1929 Output Total 0 / 400 0 / 0 Balance 1569 / 1529 0 / 0 Intake: Intake, Oral Amount 480 / 840 Intake, Total IV Amount 1089 / 1089 Potassium Chloride/D5-0.2%NaCl 1089 / 1089 1,000 ml @ 100 mls/hr IV .Q10H [facility] Rx#:[id number] Output: Output, Urine Amount 0 / 400 0 / 0 Other: Number of Unmeasured Voids 1 1 Laboratory Results - last 24 hr 11/03/23 06:47: WBC 8.0, RBC 4.73, Hgb 14.2, Hct 40.2, MCV 85.0, MCH 30.0, MCHC 35.3, RDW 16.0, Plt Count 274, MPV 7.3 L, Neut % (Auto) 79.8, Lymph % (Auto) 15.2, Lyon % (Auto) 4.7, Eos % (Auto) 0.2, Baso % (Auto) 0.1, Neut # (Auto) 6.4, Lymph # (Auto) 1.2, Lyon # (Auto) 0.4, Eos # (Auto) 0.0, Baso # (Auto) 0.0, Sodium 127 L, Potassium 3.2 L, Chloride 93 L, Carbon Dioxide 21 L, Anion Gap 16.2 H, BUN 5 L D, Creatinine 0.60, Estimated Creat Clear 46, Estimated GFR 99, Est GFR ( Amer) 120, Glucose 112 H, Calcium 9.2 I & O for Labs for Last 24 Hours: Intake & Output 10/31/23 11/01/23 11/02/23 11/03/23 23:59 23:59 23:59 23:59 Intake Total 1409 / 1409 1929 / 1929 Output Total 400 / 400 0 / 0 Balance 1408 / 1408 1529 / 1529 0 / 0 Weight 122 lb 3 oz 122 lb 2.989 oz Constitutional: Present no acute distress Respiratory: Present normal respiratory effort Cardiac: Present Reg Rate and Rhythm GI: Present normal bowel sounds; Absent tenderness Extremities: Present normal inspection and full ROM Skin: Present intact; Absent erythema Neuro: Present Grossly Intact and moves all extremities Assessment and Plan *Assessment and plan (1) Nausea & vomiting: Status: Acute Category: Medical Code(s): R11.2 - Nausea with vomiting, unspecified (2) Encephalopathy acute: Status: Acute Category: Medical Code(s): G93.40 - Encephalopathy, unspecified (3) UTI (urinary tract infection): Status: Acute Category: Medical Code(s): N39.0 - Urinary tract infection, site not specified (4) Acute hyponatremia: Status: Acute Category: Medical Code(s): E87.1 - Hypo-osmolality and hyponatremia (5) Acute hypokalemia: Status: Acute Category: Medical Code(s): E87.6 - Hypokalemia (6) Hypothyroidism: Status: Chronic Category: Medical Code(s): E03.9 - Hypothyroidism, unspecified Plan OK for discharge today, will give an oral dose of potassium prior to discharge, f/u with Dr. Sloan in [place] in 8 days.
--- NOTE | 2023-11-03 09:35 | PC.NURSE ---
d/c IV KCl/NaCl per MD, switched to PO
--- NOTE | 2023-11-04 13:53 | SW/DCPLANNER ---
Follow up phone call w/ this patient: patient stated that she is doing well at home and does not have any needs/questions at this time.
--- NOTE | 2023-11-06 08:32 | EXP.DC.SUM ---
General Admission date:: 11/01/23 Discharge date: 11/03/23 HPI HPI HPI: Mrs. Szymanski is a 68 year old patient of the [facility] who presented to [facility] ER yesterday with a 1 to 2 day history of nausea, vomiting and confusion. She was recently seen in the clinic and diagnosed with a UTI and treated with Levaquin. Patient is unsure why she started vomiting. Her emesis consisted of ingested food, no blood was present. She had an extensive GI work up earlier this year and was found to have Peñaloza's esophagus. Hospital Course Hospital Course Hospital Course: The patient was admitted for further evaluation and management. She was started on IV fluids. Her mental status did improve. She was started on a diet. By 11/03/2023, she was feeling much better and was anxious to go home. Her potassium was low, therefore she was given an oral dose of potassium and was stable for discharge. She will follow-up with Dr. Sloan in the [place] office. Exam Data for Last 24 hours Vital signs and Labs for Last 24 Hours: Temp Pulse Resp BP Pulse Ox O2 Del Method 98.2 F 73 18 161/90 H 98 Room Air 11/03/23 08:00 11/03/23 08:00 11/03/23 08:00 11/03/23 08:00 11/03/23 08:00 11/03/23 09:00 I & O for Last 24 hours: Intake & Output 11/03/23 11/04/23 11/05/23 11/06/23 11:59 11:59 11:59 11:59 Intake Total 2279 / 2279 Output Total 350 / 350 Balance 1929 / 1929 Microbiology Reports for the Last 24 Hours: Microbiology 11/01/23 15:09 Blood Blood Culture - Preliminary 11/01/23 13:42 Blood Blood Culture - Preliminary Narrative: Constitutional Constitutional: no acute distress *Routine HEENT Exam Head: Present normocephalic Eye: Present EOMI and PERRL ENT: Present mucous membranes moist *Routine Neck Exam Neck: Present supple; Absent lymphadenopathy *Routine Respiratory Exam Respiratory: Present CTA bilaterally *Routine Cardiovascular Exam Cardiovascular: Present RRR *Routine Abdominal Exam Abdominal: Present soft and normoactive bowel sounds; Absent tenderness *Routine Rectal Exam Rectal:: deferred *Routine Genitalia Exam Genitalia:: deferred *Routine Extremities Exam Extremities: Absent cyanosis, clubbing or edema *Routine Skin Exam Skin: Present warm; Absent rash *Routine Neurological Exam Neurological: Present alert and oriented X3 Results Data Completed and Pending Labs on day of discharge: Preliminary micro results at discharge 11/01/23 15:09 Blood Culture - Preliminary Blood 11/01/23 13:42 Blood Culture - Preliminary Blood DS: Diagnosis Discharge Diagnosis (1) Nausea & vomiting: Status: Acute Code(s): R11.2 - Nausea with vomiting, unspecified (2) Encephalopathy acute: Status: Acute Code(s): G93.40 - Encephalopathy, unspecified (3) UTI (urinary tract infection): Status: Acute Code(s): N39.0 - Urinary tract infection, site not specified (4) Acute hyponatremia: Status: Acute Code(s): E87.1 - Hypo-osmolality and hyponatremia (5) Acute hypokalemia: Status: Acute Code(s): E87.6 - Hypokalemia (6) Hypothyroidism: Status: Chronic Code(s): E03.9 - Hypothyroidism, unspecified Meds Home Medications and Allergies Home Medications Medication Instructions Recorded Confirmed Type aspirin 81 mg tablet,delayed 81 mg PO DAILY heart health 03/06/20 11/01/23 History release metoclopramide HCl 5 mg tablet 2.5 mg PO QAC PRN dysphagia #60 09/09/23 11/01/23 Rx tabs pregabalin 150 mg capsule 150 mg PO BID RLS #60 caps 10/16/23 11/01/23 Rx albuterol sulfate 90 mcg/actuation 2 puff inhalation Q4-6H PRN 10/28/23 11/01/23 Rx aerosol inhaler shortness of breath or wheezing #8.5 grams cyanocobalamin (vitamin B-12) 1,000 mcg SQ MONTHLY Supplement 11/02/23 11/02/23 History 1,000 mcg/mL injection solution duloxetine 30 mg capsule,delayed 30 mg PO DAILY Depression 11/02/23
== END 2023-11-03 10:22 | disposition home or self-care (01) ==
LOC: ER 16:04 → 2ND 16:15
PROVIDERS: Admitting Provider Family Medicine; Emergency Provider Student in an Organized Health Care Education/Training Program; PCP Family Medicine; Referring Provider Family Medicine; Visit Provider Family Medicine
DX: R11.2 Nausea with vomiting, unspecified (principal); G93.49 Other encephalopathy; N39.0 Urinary tract infection, site not specified; E87.1 Hypo-osmolality and hyponatremia; E87.6 Hypokalemia; E03.9 Hypothyroidism, unspecified; Z79.899 Other long term (current) drug therapy; M32.9 Systemic lupus erythematosus, unspecified; R26.81 Unsteadiness on feet; R13.10 Dysphagia, unspecified; G25.81 Restless legs syndrome
CPT/HCPCS: 36415; 70450; 71045; 80048; 80053; 80305; 81001; 82140; 82803; 83605; 83735; 84100; 84443; 84484; 85025; 87040; 87636; 99291; G0378; J2405

== ENCOUNTER 2023-11-11 10:19 | Outpatient (CLI) | payer MEDICARE, SELFPAY ==
[2023-11-11 20:31] LABS: Chloride 90 mmol/L (98-107); Potassium 3.7 mmoL/L (3.5-5.1); Sodium 128 mmol/L (136-145)
[2023-11-11 20:34] LABS: Alanine Aminotransferase 22 U/L (12-78); Albumin Level 4.2 g/dl (3.5-5.0); Albumin/Globulin Ratio 1.6 (1.1-1.8); Alkaline Phosphatase 81 U/L (38-126); Anion Gap 12.7 mEq/L (5-15); Aspartate Amino Transferase 34 U/L (14-36); Bilirubin,Total 0.6 mg/dl (0.2-1.3); Blood Urea Nitrogen 13 mg/dl (7-17); Calcium 8.7 mg/dl (8.4-10.2); Carbon Dioxide 29 mmol/L (22.0-30.0); Estimated Glomerular Filt Rate 71 ml/min (>60); GFR (African American) 86 ML/MIN (>60); Globulin 2.7 g/dL (1.3-3.2); Glucose 137 mg/dl (74-100); Total Protein,Serum 6.9 g/dl (6.3-8.2)
== END 2023-11-11 23:59 ==
PROVIDERS: PCP Family Medicine; Visit Provider Family Medicine
DX: E87.1 Hypo-osmolality and hyponatremia (principal)
CPT/HCPCS: 80053

== ENCOUNTER 2023-11-20 12:29 | Emergency (ER) | payer MEDICARE, SELFPAY ==
[2023-11-20 12:30] VITALS: BP 186/106; PULSE 88; RESP 18; TEMP 36.9; O2SAT 99; BMI 20.2
[2023-11-20 12:46] VITALS: BP 188/111; PULSE 82; O2SAT 100
--- NOTE | 2023-11-20 12:47 | PC.NURSE ---
care management notified of pt needs at home. will come assist with these needs
[2023-11-20] MEDS: LACTATED RINGERS 1000ML 1,000 ML 999 ML IV (12:58)
[2023-11-20] MEDS: ONDANSETRON 4MG/2ML VIAL 4 MG IV (12:58)
--- NOTE | 2023-11-20 12:59 | HMH.EDGENADL ---
Discharge Plan Disposition Patient Disposition: Home, Self-Care Prescriptions Prescriptions: New promethazine 25 mg tablet 25 mg PO TID PRN (Reason: nausea and vomiting) 5 Days Qty: 20 0RF ondansetron 4 mg tablet,disintegrating 4 mg PO Q6H PRN (Reason: nausea and vomiting) 5 Days Qty: 20 0RF No Action metoclopramide HCl 5 mg tablet 2.5 mg PO QAC PRN (Reason: dysphagia) Qty: 60 2RF Rx Instructions: administer 30 minutes before meals levothyroxine 175 mcg capsule 175 mcg PO DAILY Qty: 30 3RF potassium chloride 10 mEq capsule, extended release 10 meq PO DAILY Qty: 30 3RF aspirin 81 mg tablet,delayed release (DR/EC) 81 mg PO DAILY pregabalin 150 mg capsule 150 mg PO BID Qty: 60 0RF albuterol sulfate 90 mcg/actuation HFA aerosol inhaler 2 puff inhalation Q4-6H PRN (Reason: shortness of breath or wheezing) Qty: 8.5 0RF ergocalciferol (vitamin D2) 1,250 mcg (50,000 unit) capsule See Rx Instructions .ROUTE .COMPLEX Qty: 4 1RF Dose Instruction: Take 1 Capsule by mouth once weekly for supplement. Rx Instructions: Take 1 Capsule by mouth once weekly for supplement. cyanocobalamin (vitamin B-12) 1,000 mcg/mL solution 1,000 mcg SQ MONTHLY Patient Comments: INJECT INTO THE MUSCLE SUBCUTANEOUSLY ONCE A MONTH. esomeprazole magnesium 40 mg capsule,delayed release(DR/EC) 40 mg PO DAILY Patient Comments: TAKE 1 CAPSULE BY MOUTH ONCE DAILY. hydroxyzine pamoate 25 mg capsule 25 - 50 mg PO HSP PRN (Reason: Sleep) Patient Comments: TAKE 1 TO 2 CAPSULES BY MOUTH NIGHTLY AT BEDTIME NEEDED FOR SLEEP. duloxetine 30 mg capsule,delayed release(DR/EC) 30 mg PO DAILY promethazine 12.5 mg tablet 12.5 mg PO TID Patient Comments: TAKE 1 TABLET BY MOUTH 3 TIMES DAILY FOR NAUSEA AND VOMITING. rosuvastatin 10 mg tablet 10 mg PO DAILY Patient Comments: TAKE 1 TABLET BY MOUTH ONCE DAILY. Referrals Follow up/Referrals: Homero Sloan MD [Primary Care Provider] - See instructions Activity Restrictions/Add. Instructions Additional Instructions/Restrictions: Please continue to follow-up with your primary care doctor and refrigeration operator regarding your chronic nausea vomiting weight loss and electrolyte abnormalities. Phenergan and Zofran were prescribed at your request please be mindful that Phenergan can cause significant sedation. Return to emergency room with any worsening symptoms. Clinical Impressions Clinical Impression: Unintentional weight loss, Nausea & vomiting, Hypokalemia Instructions Patient Instructions: DI for Diarrhea and Traveler's Diarrhea -- Adult, DI for Diarrhea and Traveler's Diarrhea -- Child, DI for Nausea -- Adult, DI for Nausea -- Child Discharge ED Provider: Abby Fay General Adult HPI General Chief complaint: Nausea/Vomiting/Diarrhea Stated complaint: N/V Time Seen by Provider: 11/20/23 12:37 Mode of Arrival: Wheelchair Source of Information: Patient and Significant Other Limitations: No Limitations Description of Symptoms (Recalled from ER Triage Doc. by RN): Spouse reports patient has been sick off and on since before Thanksgiving with nausea, vomiting, and falls. Reports she hasn't really had much of an apetite and not able to keep much down. History of Present Illness HPI narrative: Is a 68-year-old female whom I taken care of multiple times in the emergency department presents today with recurrent symptoms nausea vomiting decreased p.o. intake and overall deconditioning. I saw her last summer when she had significant weight loss and had food intolerance and she had extensive workup at that time including CAT scans endoscopies etc. and no definitive etiology of her symptoms was ever identified. I subsequently admitted her later in the year in October just a few weeks ago when she was altered had a GCS of 13 and a sodium of 127 which improved with IV fluids. Since that time she is fallen 8 different times and continues to be deconditioned. And while her mental status had improved and is still improved she is progressively more weak and continues to not be able to have any type of p.o. tolerance. She has been followed outpatient by refrigeration operator and her primary care doctor. specifically asked for a wheelchair and a bedside commode to be cared for at home and they both very specifically state they do not want to be admitted in the hospital at this time. Related Data Home Medications Medication Instructions Recorded Confirmed aspirin 81 mg tablet,delayed 81 mg PO DAILY heart health 03/06/20 11/11/23 release cyanocobalamin (vitamin B-12) 1,000 mcg SQ MONTHLY Supplement 11/02/23 11/11/23 1,000 mcg/mL injection solution duloxetine 30 mg capsule,delayed 30 mg PO DAILY Depression 11/02/23 11/11/23 release esomeprazole magnesium 40 mg 40 mg PO DAILY GERD 11/02/23 11/11/23 capsule,delayed release hydroxyzine pamoate 25 mg capsule 25 - 50 mg PO HSP PRN Sleep 11/02/23 11/11/23 promethazine 12.5 mg tablet 12.5 mg PO TID Nausea And Vomiting 11/02/23 11/11/23 rosuvastatin 10 mg tablet 10 mg PO DAILY Cholesterol 11/02/23 11/11/23 Previous Rx's Medication Instructions Recorded metoclopramide HCl 5 mg tablet 2.5 mg PO QAC PRN dysphagia #60 09/09/23 tabs pregabalin 150 mg capsule 150 mg PO BID RLS #60 caps 10/16/23 albuterol sulfate 90 mcg/actuation 2 puff inhalation Q4-6H PRN 10/28/23 aerosol inhaler shortness of breath or wheezing #8.5 grams levothyroxine 175 mcg capsule 175 mcg PO DAILY #30 caps 11/11/23 potassium chloride 10 mEq 10 meq PO DAILY #30 caps 11/11/23 capsule,extended release ergocalciferol (vitamin D2) 1,250 See Rx Instructions .Route 11/12/23 mcg (50,000 unit) capsule .COMPLEX #4 caps ondansetron 4 mg disintegrating 4 mg PO Q6H PRN nausea and 11/20/23 tablet vomiting 5 days #20 tabs promethazine 25 mg tablet 25 mg PO TID PRN nausea and 11/20/23 vomiting 5 days #20 tabs Allergies Allergy/AdvReac Type Severity Reaction Status Date / Time Antiepileptics with Arene Allergy Unknown Verified 11/11/23 14:47 Oxide Met allergy reaction codeine Allergy Unknown Verified 11/11/23 14:47 allergy reaction tuberculin, purified protein Allergy Unknown Verified 11/11/23 14:47 deriva allergy reaction [facility] Disclaimer: The information contained in this section may have been updated after the patient was seen, as this information can be updated by other users. Medical History (Updated 11/20/23 @ 14:32 by Abby Fay MD) Anxiety disorder Peñaloza's esophagus with esophagitis Confusion and disorientation Decreased appetite Dysphagia Episodic migraine History of seizure Hx of non anemic vitamin B12 deficiency Lupus Migraine RLS (restless legs syndrome) Tremor Unsteady gait when walking Weight loss Surgical History H/O: hysterectomy History of Divina fundoplication History of shoulder surgery Family History Other Family history of cancer Family history of diabetes mellitus type II Family history of myocardial infarction Family history of stroke Social History Smoking Status: Never smoker alcohol intake: never substance use type: denies use current occupational status: retired Travel in the last 8 weeks: None household members: spouse housing: house lives independently: No marital status: education level: high school service: No mcc: No caffeine: Yes do you feel safe at home: Yes victim of physical abuse: No victim of emotional abuse: No victim of sexual abuse: No would you like helpful sources: No ROS Obtained: Yes All systems reviewed & no additional complaints except as documented Physical Exam General General appearance: alert Chest Chest inspection: Present normal inspection and symmetric chest wall rise Respiratory Respiratory exam: Present normal lung sounds bilaterally; Absent respiratory distress Cardiovascular Cardiovascular exam: Present regular rate and normal rhythm Abdominal Exam Abdominal exam: Present soft; Absent distention or tenderness Back Exam Back exam: Present other (Midline lumbar spine tenderness there is surrounding ecchymosis no step-offs or deformities normal neurovascular exam lower extremities) Neurological Exam Neurological exam: Present alert, oriented X3 and other (Nonfocal but generalized tremor) Medical Decision Making Rah Inquiry Pt receiving controlled substance: No Vital Signs: 11/20/23 12:30 11/20/23 12:46 11/20/23 13:01 Temperature 98.5 F Temperature Source Oral Pulse Rate 82 80 Pulse Rate [Right] 88 Respiratory Rate 18 Blood Pressure 188/111 H 185/96 H Blood Pressure [Right Arm] 186/106 H Blood Pressure Mean 130 Blood Pressure Mean [Right Arm] 132 Blood Pressure Source [Right Arm] Automatic Cuff 02 Sat by Pulse Oximetry 99 100 97 Oxygen Delivery Method Room Air Room Air Room Air 11/20/23 13:15 11/20/23 14:05 Temperature Temperature Source Pulse Rate 81 80 Pulse Rate [Right] Respiratory Rate Blood Pressure 195/95 H 196/99 H Blood Pressure [Right Arm] Blood Pressure Mean 123 125 Blood Pressure Mean [Right Arm] Blood Pressure Source [Right Arm] 02 Sat by Pulse Oximetry 99 92 L Oxygen Delivery Method Room Air Lab Data Lab results reviewed: Yes I reviewed the patient's lab results. Lab Results 11/20/23 12:52: WBC 10.7, RBC 4.39, Hgb 13.2, Hct 37.8, MCV 86.2, MCH 30.0, MCHC 34.8, RDW 16.7, Plt Count 345, MPV 8.0, Neut % (Auto) 88.9 H, Lymph % (Auto) 6.6 L, [place] % (Auto) 4.1, Eos % (Auto) 0.2, Baso % (Auto) 0.2, Neut # (Auto) 9.5 H, Lymph # (Auto) 0.7, [place] # (Auto) 0.4, Eos # (Auto) 0.0, Baso # (Auto) 0.0, Total Counted 100, Neutrophils % (Manual) 84 H, Band Neutrophils % 7.0, Lymphocytes % (Manual) 4 L, Monocytes % (Manual) 5, Platelet Estimate Normal, RBC Morphology Normal, Sodium 133 L, Potassium 3.0 L, Chloride 97 L, Carbon Dioxide 23, Anion Gap 16.0 H, BUN 12, Creatinine 0.60, Estimated Creat Clear 44, Estimated GFR 99, Est GFR ( Amer) 120, Glucose 149 H, Calcium 9.9, Phosphorus 4.3, Magnesium 2.0, Total Bilirubin 1.3, AST 30, ALT 27, Alkaline Phosphatase 109, Total Protein 7.9, Albumin 4.8, Globulin 3.1, Albumin/Globulin Ratio 1.5, Lipase 120 11/20/23 14:00: Urine Color Yellow, Urine Appearance Clear, Urine pH 7.0, Ur Specific [place] 1.015, Urine Protein Trace, Urine Glucose (UA) Negative, Urine Ketones 1+, Urine Blood Negative, Urine Nitrate Negative, Urine Bilirubin 1+ A, Urine Urobilinogen 2.0, Ur Leukocyte Esterase Negative, Urine RBC None, Urine WBC Occasional, Ur Squamous Epith Cells Occasional, Amorphous Sediment 3+, Urine Bacteria None 11/20/23 12:52 11/20/23 12:52 Orders (Tests/Meds): ED MEDICATIONS Discontinued Medications Generic Name Dose Route Start Last Admin Trade Name Sammie PRN Reason Stop Dose Admin Lactated Ringer's 1,000 mls @ 999 mls/hr 11/20/23 13:00 11/20/23 12:58 Lactated Ringer's 1000 Ml Bag IV 11/20/23 14:00 999 mls/hr .Q1H1M EPIFANIO Administration Ondansetron HCl 4 mg 11/20/23 12:48 11/20/23 12:58 Ondansetron 4mg/2ml Vial IV 11/20/23 12:49 4 mg ONCE ONE Administration Potassium Chloride 40 meq 11/20/23 14:15 11/20/23 14:19 Potassium Chloride 20meq Tab PO 11/20/23 14:16 40 meq ONCE ONE Administration ORDERS Category Date Time Status CT lumbar spine wo con Stat Cat Scan 11/20/23 13:01 Completed CBC w/Auto Diff [Complete Blood Count Auto Diff] Stat Lab 11/20/23 12:52 Completed CMP [Comprehensive Metabolic Panel] Stat Lab 11/20/23 12:52 Completed Lipase Stat Lab 11/20/23 12:52 Completed Magnesium Stat Lab 11/20/23 12:52 Completed Phosphorous Stat Lab 11/20/23 12:52 Completed UA [Urinalysis and Microscopic] Stat Lab 11/20/23 14:00 Completed Medical Decision Narrative: Patient is a 68-year-old with above history who has chronic deconditioning p.o. intolerance nausea and vomiting. She does not appear as ill as the last few times that I have seen her this time she is alert oriented with a nonfocal neurologic exam likely mildly dehydrated. Will check her electrolytes give IV fluids and reassess. We did get case management to work with her to get DME including bedside commode and wheelchair. Patient and are denying any hospitalization rehab or mcc placement. Hypokalemia replaced. CT scan performed in person interpreted no evidence of fracture or dislocation this is consistent with radiology read. Reassessment patient remained stable and is tolerating p.o. mental status is still normal at this point. We did discuss with case management to are trying to get the DME as requested. This is being passed between different companies but this is being actively worked on we are unable to get the DME with the local company, [employer]. However this is being worked on by the company that has a contract with her insurance. Family specifically requested Phenergan and Zofran and they are aware that Phenergan can cause significant sedation but states that this helps her sleep at night. She was discharged in stable and improved condition. Critical Care Critical Care Time Critical Care Time: No
[2023-11-20 13:01] VITALS: BP 185/96; PULSE 80; O2SAT 97
--- NOTE | 2023-11-20 13:01 | CT_ITS ---
FINAL REPORT CLINICAL HISTORY: fall, midline back pain COMPARISON: None FINDINGS: Axial imaging of the lumbar spine was obtained without contrast. Sagittal and coronal reformatted images were also obtained and reviewed.This study was performed with techniques to keep radiation doses as low as reasonably achievable (ALARA). Individualized dose reduction techniques using automated exposure control or adjustment of mA and/or kV according to the patient's size were employed. There is no fracture. The vertebral alignment is normal. There is mild and moderate degenerative change. There is no evidence of significant central canal stenosis. 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 IMPRESSION: No acute bony abnormality. 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 Reviewed, Interpreted and Dictated by Roel Lind III, MD Transcribed by Cookie Smyth Authenticated and [facility]
[2023-11-20 13:10] LABS: Basophils % 0.2 % (0.1-2.0); Eosinophils % 0.2 % (0.1-12.0); Hematocrit 37.8 % (37.0-47.0); Hemoglobin 13.2 g/dL (12.2-16.2); Lymphocytes # 0.7 K/mm3 (0.7-4.5); Lymphocytes % 6.6 % (10-50); Mean Corpuscular HGB Conc 34.8 g/dL (31.8-35.4); Mean Corpuscular Volume 86.2 fl (81-99); Monocytes # 0.4 K/mm3 (0.1-1.0); Monocytes % 4.1 % (1.7-9.3); Neutrophils # 9.5 K/mm3 (1.8-7.8); Neutrophils % 88.9 % (37.0-80.0); Platelet Count 345 K/mm3 (142-424); Red Blood Count 4.39 M/mm3 (4.20-5.40); Red Cell Distribution Width 16.7 % (11.5-17.5); White Blood Count 10.7 K/mm3 (4.8-10.8)
--- NOTE | 2023-11-20 13:10 | CARE MANAGER ---
Patient will require wheelchair for mobility. Patient has been using cane/walker for several years and has had an increase in falls and functional decline. MARNIE Jacob
[2023-11-20 13:12] LABS: Chloride 97 mmol/L (98-107); Sodium 133 mmol/L (136-145)
[2023-11-20 13:14] LABS: Alanine Aminotransferase 27 U/L (12-78); Aspartate Amino Transferase 30 U/L (14-36); Blood Urea Nitrogen 12 mg/dl (7-17); Creatinine Clearance Estimated 44 mL/min (50-200); Estimated Glomerular Filt Rate 99 ml/min (>60); GFR (African American) 120 ML/MIN (>60)
[2023-11-20 13:15] VITALS: BP 195/95; PULSE 81; O2SAT 99
[2023-11-20 13:15] LABS: Albumin Level 4.8 g/dl (3.5-5.0); Albumin/Globulin Ratio 1.5 (1.1-1.8); Alkaline Phosphatase 109 U/L (38-126); Bilirubin,Total 1.3 mg/dl (0.2-1.3); Calcium 9.9 mg/dl (8.4-10.2); Carbon Dioxide 23 mmol/L (22.0-30.0); Globulin 3.1 g/dL (1.3-3.2); Glucose 149 mg/dl (74-100); MANUAL DIFFERENTIAL MANUAL DIFFERENTIAL (MANUAL DIFF); Total Protein,Serum 7.9 g/dl (6.3-8.2)
--- NOTE | 2023-11-20 13:19 | CARE MANAGER ---
Addendum entered by Caitlin Snow RN 11/20/23 13:25: Due to patient have HMO policy will have to use [employer] for DME. [facility] states they will forward the info. Original Note: Patient and request BSC and wheelchair. They did not have a preference on company for providing the DME. Information sent to [facility] and will be delivered to home at patient's request.
[2023-11-20 13:47] LABS: Phosphorous 4.3 mg/dl (2.5-4.5)
[2023-11-20 14:02] LABS: Lipase 120 U/L (23-300)
[2023-11-20 14:04] LABS: Microscopic, Urine URINE MICROSCOPIC (MICROSCOPIC)
[2023-11-20 14:05] VITALS: BP 196/99; PULSE 80; O2SAT 92
[2023-11-20 14:06] LABS: Lymphocytes % 4 % (10-50); Monocytes % 5 % (2-9); Neutrophils % 84 % (42-76); Total Cells Counted 100
[2023-11-20 14:11] LABS: Appearance,Urine CLEAR (Clear); Blood, Urine Negative (Negative); Color,Urine YELLOW (Yellow); Glucose,Urine (UA) Negative (Negative); Ketones,Urine 1+ (Negative); Leukocyte Esterase,Urine Negative (Negative); Nitrate,Urine Negative (Negative); Protein,Urine TRACE (Negative); Specific Gravity, Urine 1.015 (1.005-1.030)
[2023-11-20 14:15] LABS: Bilirubin,Urine 1+ (Negative)
[2023-11-20 14:17] LABS: RBC Morphology Normal
[2023-11-20 14:18] LABS: Platelet Estimate Normal
[2023-11-20] MEDS: POTASSIUM CHLORIDE 20MEQ TAB 40 MEQ PO (14:19)
[2023-11-20 14:24] LABS: WBC,Urine Occasional #/hpf (0-3)
[2023-11-20 14:25] LABS: Amorphous Sediment,Urine 3+ /lpf; Squamous Epithelial Cell,Urine Occasional #/hpf (0-5)
[2023-11-20 14:46] VITALS: BP 161/92; PULSE 87; RESP 18; TEMP 36.8; O2SAT 99
== END 2023-11-20 14:47 | disposition home or self-care (01) ==
PROVIDERS: Emergency Provider Student in an Organized Health Care Education/Training Program; PCP Family Medicine
DX: R11.2 Nausea with vomiting, unspecified (principal); R53.1 Weakness; R63.4 Abnormal weight loss; E87.6 Hypokalemia; R29.6 Repeated falls; G43.909 Migraine, unspecified, not intractable, without status migrainosus
CPT/HCPCS: 72131; 80053; 81001; 83690; 83735; 84100; 85007; 85025; 96361; 96374; 99285; J2405

== ENCOUNTER 2023-11-24 10:59 | Emergency (ER) | payer MEDICARE, SELFPAY ==
[2023-11-24 11:00] VITALS: BP 133/83; PULSE 88; RESP 16; TEMP 36.6; O2SAT 100; BMI 20.3
--- NOTE | 2023-11-24 11:04 | PC.NURSE ---
Dr Fay at bedside
--- NOTE | 2023-11-24 11:27 | PC.NURSE ---
care management notified of pt and spouses request for hospice consult
--- NOTE | 2023-11-24 11:31 | HMH.EDGENADL ---
Discharge Plan Disposition Patient Disposition: Home, Self-Care Prescriptions Prescriptions: No Action metoclopramide HCl 5 mg tablet 2.5 mg PO QAC PRN (Reason: dysphagia) Qty: 60 2RF Rx Instructions: administer 30 minutes before meals sertraline 100 mg tablet 100 mg PO DAILY olanzapine 2.5 mg tablet 2.5 mg PO DAILY ferrous sulfate 47.5 mg iron tablet extended release 143 mg PO DAILY levothyroxine 175 mcg capsule 175 mcg PO DAILY Qty: 30 3RF potassium chloride 10 mEq capsule, extended release 10 meq PO DAILY Qty: 30 3RF aspirin 81 mg tablet,delayed release (DR/EC) 81 mg PO DAILY pregabalin 150 mg capsule 150 mg PO BID Qty: 60 0RF albuterol sulfate 90 mcg/actuation HFA aerosol inhaler 2 puff inhalation Q4-6H PRN (Reason: shortness of breath or wheezing) Qty: 8.5 0RF ergocalciferol (vitamin D2) 1,250 mcg (50,000 unit) capsule See Rx Instructions .ROUTE .COMPLEX Qty: 4 1RF Dose Instruction: Take 1 Capsule by mouth once weekly for supplement. Rx Instructions: Take 1 Capsule by mouth once weekly for supplement. cyanocobalamin (vitamin B-12) 1,000 mcg/mL solution 1,000 mcg SQ MONTHLY Patient Comments: INJECT INTO THE MUSCLE SUBCUTANEOUSLY ONCE A MONTH. esomeprazole magnesium 40 mg capsule,delayed release(DR/EC) 40 mg PO DAILY Patient Comments: TAKE 1 CAPSULE BY MOUTH ONCE DAILY. hydroxyzine pamoate 25 mg capsule 25 - 50 mg PO HSP PRN (Reason: Sleep) Patient Comments: TAKE 1 TO 2 CAPSULES BY MOUTH NIGHTLY AT BEDTIME NEEDED FOR SLEEP. duloxetine 30 mg capsule,delayed release(DR/EC) 30 mg PO DAILY promethazine 12.5 mg tablet 12.5 mg PO TID Patient Comments: TAKE 1 TABLET BY MOUTH 3 TIMES DAILY FOR NAUSEA AND VOMITING. rosuvastatin 10 mg tablet 10 mg PO DAILY Patient Comments: TAKE 1 TABLET BY MOUTH ONCE DAILY. ondansetron 4 mg tablet,disintegrating 4 mg PO Q6H PRN (Reason: nausea and vomiting) 5 Days Qty: 20 0RF Referrals Follow up/Referrals: Homero Sloan MD [Primary Care Provider] - See instructions Activity Restrictions/Add. Instructions Additional Instructions/Restrictions: Case management will continue to work with you on home health/hospice and durable medical equipment. If you change your mind on wanting more aggressive goals in care you may return to the emergency department. Clinical Impressions Clinical Impression: Unintentional weight loss, Adult failure to thrive, Need for comfort care, Goals of care, counseling/discussion Discharge ED Provider: Abby Fay General Adult HPI General Chief complaint: Recheck/Abnormal Lab/Rx Stated complaint: dr. alfredo sent over for confusion and low sodium Time Seen by Provider: 11/24/23 11:02 History of Present Illness HPI narrative: Is a 68-year-old female sent to the emergency department by her neurologist Dr. Alfredo. This patient is well-known to myself have seen her multiple times in the emergency department. She started having unintentional weight loss and nausea vomiting at the beginning of last year by the time I saw her last summer she had had 30 to 40 pounds of weight loss and had an extensive evaluation including CAT scans of her chest abdomen pelvis and head not yielding any definitive diagnosis. Since that time she has had an extensive gastrointestinal evaluation and no definitive diagnosis has been made. No significant changes in her scans of her imaging of her head have been noted other than some microvascular changes from 2019 although through a CAT scan done most recently with an admission in October of this past year. She is profoundly weak however I saw her just a few days ago and she has not changed and this is also been confirmed by herself as well as her is at the bedside. She came in with some nausea and vomiting and asked for a bedside commode as well as a wheelchair a few days ago did not have any significant electrolyte abnormalities specifically her sodium at that time. She has not had any worsening nausea since that time in fact states its gotten better. Her mental status and weakness is at its baseline. She adamantly states right now that she does not want any tests including CAT scans IV blood tests admission rehab or prison placement. However is very concerned because he is having a hard time taking care of her at home. Related Data Home Medications Medication Instructions Recorded Confirmed aspirin 81 mg tablet,delayed 81 mg PO DAILY heart health 03/06/20 11/24/23 release cyanocobalamin (vitamin B-12) 1,000 mcg SQ MONTHLY Supplement 11/02/23 11/24/23 1,000 mcg/mL injection solution duloxetine 30 mg capsule,delayed 30 mg PO DAILY Depression 11/02/23 11/24/23 release esomeprazole magnesium 40 mg 40 mg PO DAILY GERD 11/02/23 11/24/23 capsule,delayed release hydroxyzine pamoate 25 mg capsule 25 - 50 mg PO HSP PRN Sleep 11/02/23 11/24/23 promethazine 12.5 mg tablet 12.5 mg PO TID Nausea And Vomiting 11/02/23 11/24/23 rosuvastatin 10 mg tablet 10 mg PO DAILY Cholesterol 11/02/23 11/24/23 ferrous sulfate 143 mg PO DAILY 11/24/23 11/24/23 olanzapine 2.5 mg tablet 2.5 mg PO DAILY 11/24/23 11/24/23 sertraline 100 mg tablet 100 mg PO DAILY 11/24/23 11/24/23 Previous Rx's Medication Instructions Recorded metoclopramide HCl 5 mg tablet 2.5 mg PO QAC PRN dysphagia #60 09/09/23 tabs pregabalin 150 mg capsule 150 mg PO BID RLS #60 caps 10/16/23 albuterol sulfate 90 mcg/actuation 2 puff inhalation Q4-6H PRN 10/28/23 aerosol inhaler shortness of breath or wheezing #8.5 grams levothyroxine 175 mcg capsule 175 mcg PO DAILY #30 caps 11/11/23 potassium chloride 10 mEq 10 meq PO DAILY #30 caps 11/11/23 capsule,extended release ergocalciferol (vitamin D2) 1,250 See Rx Instructions .Route 11/12/23 mcg (50,000 unit) capsule .COMPLEX #4 caps ondansetron 4 mg disintegrating 4 mg PO Q6H PRN nausea and 11/20/23 tablet vomiting 5 days #20 tabs Allergies Allergy/AdvReac Type Severity Reaction Status Date / Time Antiepileptics with Arene Allergy Unknown Verified 11/11/23 14:47 Oxide Met allergy reaction codeine Allergy Unknown Verified 11/11/23 14:47 allergy reaction tuberculin, purified protein Allergy Unknown Verified 11/11/23 14:47 deriva allergy reaction [facility] Disclaimer: The information contained in this section may have been updated after the patient was seen, as this information can be updated by other users. Medical History Anxiety disorder Peñaloza's esophagus with esophagitis Confusion and disorientation Decreased appetite Dysphagia Episodic migraine History of seizure Suspected non epileptic etiology Hx of non anemic vitamin B12 deficiency Most recent B12 level 04/04/2023: 783. Lupus Cannot exclude SLE, [employer] vasculitis Migraine RLS (restless legs syndrome) Tremor Unsteady gait when walking Weight loss Surgical History H/O: hysterectomy History of Divina fundoplication esophagus flap History of shoulder surgery Family History Other Family history of cancer Family history of diabetes mellitus type II Family history of myocardial infarction Family history of stroke Social History Smoking Status: Never smoker alcohol intake: never substance use type: denies use current occupational status: retired Travel in the last 8 weeks: None household members: spouse housing: house lives independently: No marital status: education level: high school service: No prison: No caffeine: Yes do you feel safe at home: Yes victim of physical abuse: No victim of emotional abuse: No victim of sexual abuse: No would you like helpful sources: No ROS Obtained: Yes All systems reviewed & no additional complaints except as documented Physical Exam General General appearance: cachectic Respiratory Respiratory exam: Present normal lung sounds bilaterally Cardiovascular Cardiovascular exam: Present regular rate and normal rhythm Abdominal Exam Abdominal exam: Present soft and distention Neurological Exam Neurological exam: Present alert, oriented X3 and other (Resting tremor nonfocal neurologic exam) Medical Decision Making Rah Inquiry Pt receiving controlled substance: No Vital Signs: 11/24/23 11:00 Temperature 97.8 F Temperature Source Oral Pulse Rate [Radial] 88 Respiratory Rate 16 Blood Pressure [Left Arm] 133/83 Blood Pressure Mean [Left Arm] 99 Blood Pressure Source [Left Arm] Automatic Cuff Blood Pressure Position [Left Arm] Sitting 02 Sat by Pulse Oximetry 100 Oxygen Delivery Method Room Air Orders (Tests/Meds): ORDERS Category Date Time Status Consult to Case Management [CONS] Routine Cons 11/24/23 12:14 Ordered Medical Decision Narrative: 68-year-old female with above history and physical unchanged from several days ago in fact she is slightly improved from last time I saw her several days ago. She has had a chronic failure to thrive and chronic deconditioning with extensive evaluation not yielding any definitive diagnosis. I had an extensive goals of care discussion with the family and advised them that if they would like further diagnostic testing that would be for the purpose of looking for pathology that would require possible intervention and asked if this is something that she would want. She states that she would not want aggressive therapy including surgeries chemotherapy etc. She also adamantly denies wanting any type of diagnostic testing including even an IV or blood test at the moment. She states she has not had any worsening nausea and vomiting that she is okay from that standpoint. She also denies any CAT scans at the moment. Her is at the bedside states that he is having a very hard time taking care of her. I offered admission for further evaluation and diagnostic testing I also offered the possibility of transferring where there is multispecialty and multidisciplinary inpatient units. However after having an extensive goals of care discussion she states she just wants to go home she does not want any further tests done. For this reason I offered hospice care because I do not believe that the can adequately care for her at home. She agreed to this we will have hospice come evaluate her. Management came to evaluate the patient and had extensive discussion with the patient and the patient's states at this point he would actually like home health she will actually try to get home health established with [facility] which could be a seamless transition to hospice. Also the DME from last visit still has not been able to be delivered due to insurance restrictions. She will continue to work on this patient was discharged in stable condition and case management will continue to work on this for the patient. Critical Care Critical Care Time Critical Care Time: No
--- NOTE | 2023-11-24 12:05 | PC.NURSE ---
care management at bedside
--- NOTE | 2023-11-24 12:22 | SW/DCPLANNER ---
Addendum entered by Beverley Browne 11/25/23 10:49: Eileen w/ [facility] stated that services will begin this week for this patient. Original Note: Per patient/family request information/order has been faxed to [facility] for home health services. Patient will discharge home from ED: I will follow up w/ patient via phone once [facility] reviews information/order.
--- NOTE | 2023-11-24 12:23 | CARE MANAGER ---
Met with patient to discuss discharge needs. Patient's spouse states that he would like for her to have some PT/OT, so that she can maybe get stronger. Patient was in the ED a few days ago and had DME ordered, which has not been delivered yet. I will work on getting them the equipment delivered today and Beverley will set them up with a provider. I spoke with Felix with [facility] and he assures me that equipment will be delivered today.
[2023-11-24 12:32] VITALS: BP 133/83; PULSE 88; RESP 16; TEMP 36.6; O2SAT 100
--- NOTE | 2023-11-24 14:09 | CARE MANAGER ---
Patient is unable to ambulate with assist of walker and will benefit from the use of a wheel chair.
== END 2023-11-24 12:33 | disposition home or self-care (01) ==
PROVIDERS: Emergency Provider Student in an Organized Health Care Education/Training Program; PCP Family Medicine
DX: R63.4 Abnormal weight loss (principal); R62.7 Adult failure to thrive
CPT/HCPCS: 99283